=== PATIENT | female | born 1965 | race African-American/Black ===

== ENCOUNTER 2016-07-10 00:29 | Inpatient (IN) | payer MEDICAID ==
[2016-07-10] VITALS (9 sets, daily range): BP systolic 97–180; BP diastolic 51–122
[~2016-07-10] VITALS: Ht 170.2 cm; Wt 104.8 kg
--- NOTE | 2016-07-10 01:08 | Emergency Room Report ---
History of Present Illness General Chief Complaint: Dyspnea/Respdistress Source: Patient, EMS Present Illness HPI Patient presents with complaints of chest pain or shortness of breath She reports that she was recently in the hospital did not feel that she was fully treated Now presents with increased short of breath dyspnea Positional and exertional Patient has a history of CHF denies any vomiting or diarrhea denies any fevers or chills she is in mild cough Patient has been taking her diuretic however has not been helping Allergies: Coded Allergies: No Known Allergies (Unverified , 07/10/16) Patient History Past Medical History: see triage record Pertinent Family History: none Reviewed Nursing Documentation: PMH: Agreed, PSxH: Agreed Nursing Documentation-PMH Hx Cardiac Problems: Yes - CHF Hx Hypertension: Yes Hx Cerebrovascular Accident: Yes Review of Systems All Other Systems: negative except mentioned in HPI Physical Exam Vital Signs Date Time Temp Pulse Resp B/P Pulse Ox O2 Delivery O2 Flow Rate FiO2 07/10/16 00:42 97.9 113 34 207/122 88 Room Air Sp02 EP Interpretation: reviewed, abnormal - 88% interpreted as low, on 3 L the patient is 94% which is a normal oxygenation General Appearance: moderate distress - Appears tachypneic and short of breath Head: normocephalic, atraumatic Eyes: bilateral eye EOMI, bilateral eye PERRL ENT: hearing grossly normal, normal pharynx, TMs + canals normal, uvula midline Neck: full range of motion, supple, no meningismus, no bony tend Respiratory: no respiratory distress, no retraction, no accessory muscle use, crackles - Diffusely in both lower lobes Cardiovascular #1: normal peripheral pulses, regular rate, rhythm, no gallop, no JVD, no murmur Gastrointestinal: normal bowel sounds, non tender, soft, no mass, no organomegaly, non-distended, no guarding, no hernia, no pulsatile mass, no rebound Genitourinary: no CVA tenderness Musculoskeletal: normal inspection Neurologic: oriented x3, responsive, 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 as tested, motor strength/ tone normal, sensory intact Psychiatric: mood/affect normal Skin: other - 2/4 pitting edema Lymphatic: normal inspection, no adenopathy Medical Decision Making Diagnostic Impression: Primary Impression: CHF (congestive heart failure) ER Course Patient is a fairly complex patient with multiple differential to consideration including but not limited to cardiac cardiopulmonary and vascular emergencies Patient's x-rays concerning for pulmonary congestion BNP is also elevated Patient was initially written for BiPAP, however the patient is refusing and states that she cannot tolerate this Patient provided with further Lasix and require admission for further inpatient care Labs Test 07/10/16 01:25 White Blood Count 6.1 K/UL (4.8-10.8) Red Blood Count 4.47 M/UL (4.20-5.40) Hemoglobin 11.8 G/DL (12.0-16.0) Hematocrit 39.9 % (37.0-47.0) Mean Corpuscular Volume 89 FL (80-99) Mean Corpuscular Hemoglobin 26.4 PG (27.0-31.0) Mean Corpuscular Hemoglobin Concent 29.6 G/DL (32.0-36.0) Red Cell Distribution Width 17.9 % (11.6-14.8) Platelet Count 177 K/UL (150-450) Mean Platelet Volume 9.9 FL (6.5-10.1) Neutrophils (%) (Auto) 52.5 % (45.0-75.0) Lymphocytes (%) (Auto) 36.0 % (20.0-45.0) Monocytes (%) (Auto) 8.2 % (1.0-10.0) Eosinophils (%) (Auto) 1.8 % (0.0-3.0) Basophils (%) (Auto) 1.5 % (0.0-2.0) Prothrombin Time 12.0 SEC (9.30-11.50) Prothromb Time International Ratio 1.2 (0.9-1.1) Activated Partial Thromboplast Time 27 SEC (23-33) Sodium Level 142 mEQ/L (135-145) Potassium Level 4.5 mEQ/L (3.4-4.9) Chloride Level 100 mEQ/L (98-107) Carbon Dioxide Level 29 mEQ/L (20-30) Anion Gap 13 (5-15) Blood Urea Nitrogen 14 mg/dL (7-23) Creatinine 0.7 mg/dL (0.5-0.9) Estimat Glomerular Filtration Rate > 60 mL/min (>60) Glucose Level 97 mg/dL (74-106) Calcium Level 8.9 mg/dL (8.6-10.2) Total Bilirubin 0.5 mg/dL (0.0-1.2) Aspartate Amino Transf (AST/SGOT) 29 U/L (5-40) Alanine Aminotransferase (ALT/SGPT) 15 U/L (3-33) Alkaline Phosphatase 58 U/L (35-104) Total Creatine Kinase 59 U/L (26-140) Creatine Kinase MB 3.0 ng/mL (< 3.8) Creatine Kinase MB Relative Index 5.0 Troponin I < 0.30 ng/mL (<=0.30) Pro-B-Type Natriuretic Peptide 3765 pg/mL (0-125) Total Protein 6.8 g/dL (6.6-8.7) Albumin 3.4 g/dL (3.5-5.2) Globulin 3.4 g/dL Albumin/Globulin Ratio 1.0 (1.0-2.7) Lipase 45 U/L (< 60) EKG Diagnostic Results Rate: normal Rhythm: NSR ST Segments: other - Nonspecific ST and T-wave changes Rhythm Strip Diag. Results EP Interpretation: yes Rate: 77 Rhythm: NSR, no PVC's, no ectopy Chest X-Ray Diagnostic Results EP Interpretation: Yes Findings: no consolidation, no pneumothorax, other - Cardiomegaly, pulmonary congestion Number of Views: 1 Last Vital Signs Date Time Temp Pulse Resp B/P Pulse Ox O2 Delivery O2 Flow Rate FiO2 07/10/16 00:42 97.9 113 34 207/122 88 Room Air Status: improved Disposition: ADMITTED INPATIENT Condition: Serious TAN BROOKS D.O. Jul 10, 2016 01:08
[2016-07-10] MEDS ORDERED: DIGOXIN125 MCG ORAL (01:14)
[2016-07-10] MEDS ORDERED: ATORVASTATIN CA10 MG ORAL (01:14)
[2016-07-10] MEDS ORDERED: LASIX40 MG ORAL (01:14)
[2016-07-10] MEDS ORDERED: LISINOPRIL10 MG ORAL (01:14)
[2016-07-10] MEDS ORDERED: COREG12.5 MG ORAL (01:14)
[2016-07-10] MEDS ORDERED: SPIRONOLACTONE25 MG ORAL (01:14)
[2016-07-10 01:39] LABS: BASOPHILS % (AUTO) 1.5 % (0.0-2.0); EOSINOPHILS % (AUTO) 1.8 % (0.0-3.0); MEAN CORPUSCULAR HEMOGLOBIN 26.4 PG (27.0-31.0); MEAN CORPUSCULAR HGB CONC 29.6 G/DL (32.0-36.0); MEAN CORPUSCULAR VOLUME 89 FL (80-99); MEAN PLATELET VOLUME 9.9 FL (6.5-10.1); MONOCYTES % (AUTO) 8.2 % (1.0-10.0); NEUTROPHILS % (AUTO) 52.5 % (45.0-75.0); PLATELET COUNT 177 K/UL (150-450); RED BLOOD COUNT 4.47 M/UL (4.20-5.40); RED CELL DISTRIBUTION WIDTH 17.9 % (11.6-14.8); WHITE BLOOD COUNT 6.1 K/UL (4.8-10.8)
[2016-07-10 01:46] LABS: INR 1.2 (0.9-1.1)
[2016-07-10 01:51] LABS: TROPONIN I < 0.30 ng/mL (<=0.30)
[2016-07-10 01:55] LABS: ALANINE AMINOTRANSFERASE 15 U/L (3-33); ANION GAP 13 (5-15); ASPARTATE AMINO TRANSFERASE 29 U/L (5-40); CALCIUM 8.9 mg/dL (8.6-10.2); CARBON DIOXIDE 29 mEQ/L (20-30); CHLORIDE 100 mEQ/L (98-107); CREATININE 0.7 mg/dL (0.5-0.9); GLOMERULAR FILTRATION RATE > 60 mL/min (>60); HEMOLYSIS 108; LIPASE 45 U/L (< 60); POTASSIUM 4.5 mEQ/L (3.4-4.9); SODIUM 142 mEQ/L (135-145); TOTAL PROTEIN 6.8 g/dL (6.6-8.7)
[2016-07-10] MEDS ORDERED: Morphine Sulfate 4mg/ml Inj IVP ONE (02:00)
[2016-07-10] MEDS ORDERED: Nitroglycerin 2% oint pkt TOPIC ONE (06:00)
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
[2016-07-10 10:40] LABS: TROPONIN I < 0.30 ng/mL (<=0.30)
--- NOTE | 2016-07-10 10:53 | Diagnostic Imaging Report ---
Indication: Chest Pain Comparison: None A single view chest radiograph was obtained. Findings: There is enlargement of the cardiac silhouette with pulmonary vascular redistribution and prominence, hazy vessel margins and the suggestion of interstitial edema consistent with CHF. Bones are unremarkable. Impression: Congestive heart there
[2016-07-10] MEDS: Aspirin Baby 81mg ORAL SCH (10:59)
[2016-07-10] MEDS: Norco 5mg/325mg tab ORAL PRN ×2 (10:59→18:43)
[2016-07-10] MEDS: Carvedilol 12.5mg tab ORAL SCH ×2 (11:00→22:22)
[2016-07-10] MEDS: Lisinopril 10mg tab ORAL SCH (11:00)
[2016-07-10] MEDS: Heparin 5000 units/ml inj SUBQ SCH ×2 (11:04→22:24)
[2016-07-10] MEDS: Spironolactone 25mg tab ORAL SCH (12:48)
[2016-07-10 15:42] LABS: TROPONIN I < 0.30 ng/mL (<=0.30)
--- NOTE | 2016-07-10 20:07 | Consultation ---
Consult Note Consult Note Cardiology/ EP Full note dictated #[id number] DARSHAN WOODSON Jul 10, 2016 20:07
--- NOTE | 2016-07-10 23:01 | Consultation ---
DATE OF CONSULTATION: 07/10/2016 REASON FOR CONSULT: Chest pain and dyspnea. HISTORY OF PRESENT ILLNESS: The patient is a 51-year-old woman with a history of obesity, hypertension, and congestive heart failure who was admitted with increasing shortness of breath over the day prior to admission. She reports that she was taking Lasix, lisinopril, and few other medications at home, but ran out of medications three days ago. She presented to the emergency room with complaints of shortness of breath, chest pain, and cough without sputum production. In the emergency room, blood pressure was 207/122, oxygen saturation was 88% on room air and 94% on 3 L. Chest x-ray showed pulmonary congestion. She was treated with intravenous Lasix and admitted for further treatment. Cardiology evaluation was requested. MEDICATIONS: Lipitor 10 mg nightly, nicotine patch one patch q.24 h., Aldactone 25 mg daily, Lasix 40 mg IV q.12 h., Coreg 12.5 mg q.12 h., Zestril 10 mg daily, aspirin 81 mg daily, subcutaneous heparin 5000 units every 12 hours, Tylenol p.r.n., and [place] p.r.n., p.r.n. ALLERGIES: No known drug allergies. PAST MEDICAL HISTORY: As noted above. Also, possible history of coronary artery disease and remote history of myocardial infarction. Per patient, history of ventral hernia repair in 2002. SOCIAL HISTORY: The patient smokes three to four cigarettes per day. She drinks alcohol occasionally and does not use any drugs. FAMILY HISTORY: Negative for premature coronary artery disease. The patient's father has diabetes. PHYSICAL EXAMINATION: VITAL SIGNS: Blood pressure is 122/81, pulse 74 and regular, respirations 21, afebrile, and oxygen saturation 99% on room air. GENERAL: Alert and morbidly obese female, in no acute distress. HEENT: Normocephalic and atraumatic. Pupils are equal, round, and reactive to light. Sclerae anicteric. NECK: Supple. There is no thyromegaly. No jugular venous distention. Carotid pulses 2+ without bruits. LUNGS: Clear to auscultation bilaterally. HEART: Regular rate and rhythm with distant S1 and S2. No murmurs, rubs, S3, or S4. ABDOMEN: Obese, soft, and nontender. There is a healed midline surgical scar. No palpable mass. EXTREMITIES: 1+ pedal and ankle edema bilaterally. NEUROLOGIC: No focal motor deficits. LABORATORY DATA: Hemoglobin 11.8, hematocrit 39.9, white blood count 6100, and platelets 177,000. Troponin less than 0.3. Potassium 4.2. BUN 14 and creatinine 0.7. Natriuretic peptide 3765. EKG shows sinus tachycardia with rate of 108 beats per minute, axis +10 degrees, left ventricular hypertrophy with QRS widening and inverted T-waves in leads 1 and aVL consistent with repolarization. Chest x-ray shows cardiomegaly and pulmonary vascular congestion. ASSESSMENT AND RECOMMENDATIONS: The patient is a 51-year-old woman with obesity, hypertension, and congestive heart failure who was admitted with an exacerbation of congestive heart failure. This occurred in the setting of her not taking her prescribed medications for a few days. It is unclear if her heart failure is due to the systolic versus diastolic dysfunction and if she has ischemic or nonischemic cardiomyopathy. She does not appear with any current signs of myocardial ischemia. Troponin is negative. An EKG does not show any acute ischemic changes. I would favor continued Lasix for pulmonary congestion as well as carvedilol and lisinopril for blood pressure control, Aldactone, intravenous Lasix, diuresis for pulmonary vascular congestion. We would continue lisinopril for afterload reduction and Coreg for his cardiomyopathy and possible coronary artery disease. We would consider evaluation for ischemia if this has not previously been performed. We will also obtain an echo to determine if her heart failure is due to left ventricular systolic or diastolic dysfunction. Continue to monitor electrolytes, renal function, and fluid status closely. Further recommendations will be made based on her clinical course and results of the above testing. Thank you for allowing me to participate in her care. Milana Estevez M.D. DR: MAGGI JOB#: [id number] CC:
[2016-07-11 00:20] VITALS: BP 130/90
[2016-07-11 04:13] VITALS: BP 134/90
[2016-07-11] MEDS: Norco 5mg/325mg tab ORAL PRN ×2 (04:22→16:43)
[2016-07-11 08:32] VITALS: BP 134/71
[2016-07-11] MEDS: Carvedilol 12.5mg tab ORAL SCH (08:41)
[2016-07-11] MEDS: Aspirin Baby 81mg ORAL SCH (08:41)
[2016-07-11] MEDS: Spironolactone 25mg tab ORAL SCH (08:43)
[2016-07-11] MEDS: Lisinopril 10mg tab ORAL SCH (08:43)
[2016-07-11] MEDS: Heparin 5000 units/ml inj SUBQ SCH (08:45)
[2016-07-11 08:52] LABS: MEAN CORPUSCULAR HGB CONC 29.2 G/DL (32.0-36.0); MEAN CORPUSCULAR VOLUME 89 FL (80-99); MEAN PLATELET VOLUME 8.8 FL (6.5-10.1); PLATELET COUNT 157 K/UL (150-450); RED BLOOD COUNT 4.43 M/UL (4.20-5.40); RED CELL DISTRIBUTION WIDTH 17.4 % (11.6-14.8); WHITE BLOOD COUNT 4.2 K/UL (4.8-10.8)
[2016-07-11 09:13] LABS: ANION GAP 8 (5-15); CALCIUM 8.7 mg/dL (8.6-10.2); CARBON DIOXIDE 35 mEQ/L (20-30); CHLORIDE 101 mEQ/L (98-107); CREATININE 0.7 mg/dL (0.5-0.9); GLOMERULAR FILTRATION RATE > 60 mL/min (>60); HEMOLYSIS 4; POTASSIUM 4.3 mEQ/L (3.4-4.9); SODIUM 144 mEQ/L (135-145)
[2016-07-11 10:51] LABS: ANISOCYTOSIS 1+; BAND NEUTROPHILS % (MANUAL) 0 % (0-8); BASOPHILS % (MANUAL) 0 % (0-2); EOSINOPHILS % (MANUAL) 3 % (0-3); HYPOCHROMASIA 1+; LYMPHOCYTES % (MANUAL) 43 % (20-45); NEUTROPHILS % (MANUAL) 42 % (45-75); PLATELET ESTIMATE ADEQUATE; PLATELET MORPHOLOGY NORMAL; TOTAL CELLS COUNTED 100
[2016-07-11 11:48] VITALS: BP 131/76
--- NOTE | 2016-07-11 13:04 | Cardiology Report ---
APPROVED REPORT EXAM: Two-dimensional and M-mode echocardiogram with Doppler and color Doppler. INDICATION Congestive Heart Failure M-Mode DIMENSIONS IVSd1.3 (0.7-1.1cm)Left Atrium (MM)6.3 (1.6-4.0cm) LVDd7.8 (3.5-5.6cm)Aortic Root3.5 (2.0-3.7cm) PWd1.3 (0.7-1.1cm)Aortic Cusp Exc.2.1 (1.5-2.0cm) LVDs6.9 (2.5-4.0cm) PWs1.6 cm Limited Echo study. Patient requested to terminate this echo study early due to her fatigue. Severe left ventricular enlargement. Global left ventricular severe hypokinesis. Left ventricular ejection fraction estimated to be 10-15 %. Increased E point-interventricular septal separation c/w left ventricular dysfunction. Borderline left ventricular hypertrophy. No evidence of pericardial effusion. Moderate left atrial enlargement. Right ventricle appears enlarged. Right atrium not visualized. Mild focal aortic valve sclerosis with adequate cusp excursion. Mildly thickened mitral valve leaflets with normal excursion. Poor mitral valve Mitral annulus and aortic root calcification. Pulmonic valve not visualized. Normal tricuspid valve structure. No subcsotal views obtained. A color flow and spectral Doppler study was performed and revealed: Possible severe mitral regurgitation. Follow-up Echo study is strongly recommended.
--- NOTE | 2016-07-11 14:03 | Cardiology Report ---
APPROVED REPORT EKG Measurement Heart [id number] Sinus tachycardia Possible Left atrial enlargement Left ventricular hypertrophy with repolarization abnormality Abnormal ECG
--- NOTE | 2016-07-11 15:39 | General Progress Note ---
Subjective Date patient seen: Jul 11, 2016 Time patient seen: 15:39 Allergies: Coded Allergies: No Known Allergies (Unverified , 07/10/16) Objective Last 24 Hour Vital Signs Date Time Temp Pulse Resp B/P Pulse Ox O2 Delivery O2 Flow Rate FiO2 07/11/16 12:00 79 07/11/16 11:48 97.0 88 20 131/76 96 Nasal Cannula 2.0 07/11/16 08:43 134/71 07/11/16 08:41 80 134/71 07/11/16 08:32 97.2 80 18 134/71 94 Room Air 07/11/16 08:00 66 07/11/16 04:13 98.4 91 19 134/90 98 Room Air 07/11/16 04:00 99 07/11/16 00:20 98.8 87 18 130/90 94 Room Air 07/11/16 00:00 77 07/10/16 22:22 89 133/76 07/10/16 20:00 96 07/10/16 20:00 97.9 89 22 133/76 94 Room Air 07/10/16 19:42 97.9 07/10/16 16:00 97.3 74 21 122/81 99 Room Air 07/10/16 16:00 74 Intake and Output 07/10/16 07/11/16 19:00 07:00 Intake Total 240 ml 260 ml Balance 240 ml 260 ml Intake Oral 240 ml 260 ml # Voids 4 3 Laboratory Tests 07/11/16 06:53: White Blood Count 4.2L, Red Blood Count 4.43, Hemoglobin 11.5L, Hematocrit 39.4 , Mean Corpuscular Volume 89, Mean Corpuscular Hemoglobin 26.0L, Mean Corpuscular Hemoglobin Concent 29.2L, Red Cell Distribution Width 17.4H, Platelet Count 157, Mean Platelet Volume 8.8, Neutrophils (%) (Auto) , Lymphocytes (%) (Auto) , Monocytes (%) (Auto) , Eosinophils (%) (Auto) , Basophils (%) (Auto) , Differential Total Cells Counted 100, Neutrophils % ( Manual) 42L, Lymphocytes % (Manual) 43, Monocytes % (Manual) 12H, Eosinophils % (Manual) 3, Basophils % (Manual) 0, Band Neutrophils 0, Platelet Estimate Adequate, Platelet Morphology Normal, Hypochromasia 1+, Anisocytosis 1+, Sodium Level 144, Potassium Level 4.3, Chloride Level 101, Carbon Dioxide Level 35H, Anion Gap 8, Blood Urea Nitrogen 17, Creatinine 0.7, Estimat Glomerular Filtration Rate > 60, Glucose Level 79, Calcium Level 8.7, Magnesium Level 2.0 Height (Feet): 5 Height (Inches): 7.00 Weight (Pounds): 231 Rakan Hernández M.D. Jul 11, 2016 15:39
[2016-07-11 16:00] VITALS: BP 148/68
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
[2016-07-22] MEDS ORDERED: LISINOPRIL10 MG ORAL (13:55)
[2016-07-22] MEDS ORDERED: AMLODIPINE BESYL5 MG ORAL (13:55)
== END 2016-07-11 17:30 | disposition left against medical advice (07) | DRG 194 ==
LOC: EDBD 00:29 → EMR 00:58 → 2E 01:52 → EDBEDREQ 05:26
DX: I50.9 Heart failure, unspecified (principal); I10 Essential (primary) hypertension; F17.200 Nicotine dependence, unspecified, uncomplicated; E66.9 Obesity, unspecified; I25.10 Atherosclerotic heart disease of native coronary artery without angina pectoris; I25.2 Old myocardial infarction; R09.02 Hypoxemia
CPT/HCPCS: 36415; 71010; 80048; 80053; 82550; 82553; 83690; 83735; 83880; 84484; 85007; 85025; 85610; 85730; 87040; 93005; 93306

== ENCOUNTER 2016-07-16 23:00 | Inpatient (IN) | payer MEDICAID ==
[~2016-07-16] VITALS: Ht 172.7 cm; Wt 105.2 kg
[~2016-07-16 23:00] MED LIST: ATORVASTATIN CA10 MG ORAL; COREG12.5 MG ORAL; DIGOXIN125 MCG ORAL; LASIX40 MG ORAL; LISINOPRIL10 MG ORAL; SPIRONOLACTONE25 MG ORAL
[2016-07-16] MEDS ORDERED: COREG3.125 MG ORAL (23:13)
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
[2016-07-16] MEDS ORDERED: Enalaprilat 2.5mg/2ml Inj IV ONE (23:30)
[2016-07-16] MEDS ORDERED: Aspirin Baby 81mg ORAL ONE (23:30)
[2016-07-16 23:38] LABS: BASOPHILS % (AUTO) 1.8 % (0.0-2.0); EOSINOPHILS % (AUTO) 2.5 % (0.0-3.0); LYMPHOCYTES % (AUTO) 35.2 % (20.0-45.0); MEAN CORPUSCULAR HGB CONC 28.3 G/DL (32.0-36.0); MEAN CORPUSCULAR VOLUME 92 FL (80-99); MEAN PLATELET VOLUME 8.7 FL (6.5-10.1); NEUTROPHILS % (AUTO) 50.5 % (45.0-75.0); PLATELET COUNT 166 K/UL (150-450); RED CELL DISTRIBUTION WIDTH 17.2 % (11.6-14.8); WHITE BLOOD COUNT 5.9 K/UL (4.8-10.8)
[2016-07-16 23:45] VITALS: BP 165/109
[2016-07-16 23:45] LABS: ALANINE AMINOTRANSFERASE 13 U/L (3-33); ASPARTATE AMINO TRANSFERASE 16 U/L (5-40); CALCIUM 8.7 mg/dL (8.6-10.2); CARBON DIOXIDE 29 mEQ/L (20-30); CHLORIDE 102 mEQ/L (98-107); CREATININE 0.9 mg/dL (0.5-0.9); GLOMERULAR FILTRATION RATE > 60 mL/min (>60); HEMOLYSIS 2; POTASSIUM 4.2 mEQ/L (3.4-4.9); SODIUM 143 mEQ/L (135-145); TOTAL PROTEIN 6.7 g/dL (6.6-8.7)
[2016-07-16 23:46] LABS: ANION GAP 12 (5-15); TROPONIN I < 0.30 ng/mL (<=0.30)
[2016-07-16 23:56] LABS: CKMB 2.2 ng/mL (< 3.8)
[2016-07-17] VITALS (7 sets, daily range): BP systolic 146–161; BP diastolic 98–116
[2016-07-17] MEDS ORDERED: Norco 5mg/325mg tab ORAL ONE (00:30)
[2016-07-17 00:41] LABS: APPEARANCE,URINE CLEAR; KETONES,URINE NEGATIVE (NEGATIVE); LEUKOCYTE ESTERASE ,URINE 1+ (NEGATIVE); NITRITE,URINE NEGATIVE (NEGATIVE); PH,URINE 6 (4.5-8.0); PROTEIN,URINE 1+ (NEGATIVE); UROBILINOGEN,URINE NORMAL MG/DL (0.0-1.0)
[2016-07-17 01:10] LABS: BACTERIA,URINE FEW /HPF; SQUAMOUS EPITHELIAL CELL,UR FEW /LPF (NONE/OCC)
[2016-07-17 01:11] LABS: MUCUS,URINE FEW /LPF (NONE/OCC)
[2016-07-17] MEDS ORDERED: Lisinopril 10mg tab ORAL ONE (06:00)
[2016-07-17] MEDS ORDERED: Nitroglycerin 2% oint pkt TOPIC ONE (09:15)
[2016-07-17] MEDS ORDERED: Heparin 5000 units/ml inj ONE (09:17)
[2016-07-17] MEDS ORDERED: Morphine Sulfate 2mg/ml Inj ONE (09:17)
[2016-07-17] MEDS ORDERED: Miralax 17gm pkt ORAL PRN (11:00)
[2016-07-17] MEDS ORDERED: DuoNeb 0.5-3(2.5)mg/3ml neb HHN PRN (11:00)
[2016-07-17] MEDS ORDERED: Lisinopril 10mg tab ORAL SCH (12:00)
[2016-07-17] MEDS: Digoxin 0.125mg tab ORAL SCH (12:09)
[2016-07-17] MEDS: Carvedilol 6.25mg Tab ORAL SCH ×2 (12:09→21:12)
--- NOTE | 2016-07-17 13:15 | Diagnostic Imaging Report ---
Indication: SOB Technique: One view of the chest Comparison: 07/10/2016 Findings: The heart is enlarged. There is bilateral interstitial and alveolar edema, which appears less severe than on the prior study. There may be a small left pleural effusion Impression: Evidence of congestive heart failure, improved somewhat since 07/10/2016 Persistent cardiomegaly Possible small left pleural effusion
[2016-07-17] MEDS: Norco 5mg/325mg tab ORAL PRN ×2 (13:21→19:28)
--- NOTE | 2016-07-17 13:41 | History and Physical ---
History of Present Illness General Date patient seen: Jul 17, 2016 Reason for Hospitalization: dyspnea Present Illness HPI 51-year-old female with a history of cardiomyopathy and CHF. She was admitted here last week but signed out AMA 3-4 days ago. Hasn't take any medication since. She presents with chief complaint of feeling short of breath and generalized pain. He friends dog was thought to have "ticks", she thinks she might have ticks too. Allergies: Coded Allergies: No Known Allergies (Unverified , 07/10/16) Medication History Scheduled Atorvastatin Calcium* (Lipitor*), 10 MG ORAL BEDTIME, (Reported) Carvedilol (Coreg), 12.5 MG ORAL EVERY 12 HOURS, (Reported) Carvedilol (Coreg), Unknown Dose ORAL EVERY 12 HOURS, (Reported) Digoxin* (Digoxin*), 125 MCG ORAL DAILY, (Reported) Furosemide* (Lasix*), 40 MG ORAL DAILY, (Reported) Lisinopril* (Lisinopril*), 10 MG ORAL DAILY, (Reported) Spironolactone* (Aldactone*), 25 MG ORAL DAILY, (Reported) Patient History Healthcare decision maker Resuscitation status Advanced Directive on File Past Medical/Surgical History Past Medical/Surgical History: (1) Noncompliance (2) Cardiomyopathy (3) HTN (hypertension) Family History Family History: CHF (congestive heart failure) Review of Systems All Other Systems: negative except mentioned in HPI Physical Exam General Appearance: WD/WN Lines, tubes and drains: peripheral HEENT: atraumatic Neck: non-tender, normal alignment Respiratory/Chest: rhonchi - bilaterally Breasts: no masses Cardiovascular/Chest: normal peripheral pulses Abdomen: normal bowel sounds, non tender Last 24 Hour Vital Signs Date Time Temp Pulse Resp B/P Pulse Ox O2 Delivery O2 Flow Rate FiO2 07/17/16 12:20 97.3 101 22 147/114 96 Nasal Cannula 2.0 07/17/16 12:09 147/114 07/17/16 12:09 101 07/17/16 12:09 101 147/114 07/17/16 10:02 98.0 89 24 159/113 97 Room Air 07/17/16 09:31 159/113 07/17/16 08:30 89 24 159/113 97 Room Air 07/17/16 06:17 161/116 07/17/16 06:12 98.0 94 18 161/116 96 Room Air 07/17/16 03:44 98.0 90 18 148/98 95 Room Air 07/17/16 00:54 98.0 07/17/16 00:53 98.0 92 18 158/108 95 Room Air 07/16/16 23:47 95 18 Room Air 07/16/16 23:45 95 18 165/109 96 Room Air 07/16/16 23:35 168/110 07/16/16 23:02 94 18 168/110 96 Room Air Intake and Output 07/16/16 07/17/16 19:00 07:00 Output Total 1000 ml Balance -1000 ml Output Urine Total 1000 ml Laboratory Tests Test 07/16/16 23:23 07/17/16 00:30 White Blood Count 5.9 K/UL (4.8-10.8) Red Blood Count 4.10 M/UL (4.20-5.40) L Hemoglobin 10.7 G/DL (12.0-16.0) L Hematocrit 37.7 % (37.0-47.0) Mean Corpuscular Volume 92 FL (80-99) Mean Corpuscular Hemoglobin 26.0 PG (27.0-31.0) L Mean Corpuscular Hemoglobin Concent 28.3 G/DL (32.0-36.0) L Red Cell Distribution Width 17.2 % (11.6-14.8) H Platelet Count 166 K/UL (150-450) Mean Platelet Volume 8.7 FL (6.5-10.1) Neutrophils (%) (Auto) 50.5 % (45.0-75.0) Lymphocytes (%) (Auto) 35.2 % (20.0-45.0) Monocytes (%) (Auto) 10.0 % (1.0-10.0) Eosinophils (%) (Auto) 2.5 % (0.0-3.0) Basophils (%) (Auto) 1.8 % (0.0-2.0) Sodium Level 143 mEQ/L (135-145) Potassium Level 4.2 mEQ/L (3.4-4.9) Chloride Level 102 mEQ/L (98-107) Carbon Dioxide Level 29 mEQ/L (20-30) Anion Gap 12 (5-15) Blood Urea Nitrogen 17 mg/dL (7-23) Creatinine 0.9 mg/dL (0.5-0.9) Estimat Glomerular Filtration Rate > 60 mL/min (>60) Glucose Level 96 mg/dL (74-106) Calcium Level 8.7 mg/dL (8.6-10.2) Total Bilirubin 0.7 mg/dL (0.0-1.2) Aspartate Amino Transf (AST/SGOT) 16 U/L (5-40) Alanine Aminotransferase (ALT/SGPT) 13 U/L (3-33) Alkaline Phosphatase 68 U/L (35-104) Total Creatine Kinase 48 U/L (26-140) Creatine Kinase MB 2.2 ng/mL (< 3.8) Creatine Kinase MB Relative Index 4.5 Troponin I < 0.30 ng/mL (<=0.30) Pro-B-Type Natriuretic Peptide 3050 pg/mL (0-125) H Total Protein 6.7 g/dL (6.6-8.7) Albumin 3.4 g/dL (3.5-5.2) L Globulin 3.3 g/dL Albumin/Globulin Ratio 1.0 (1.0-2.7) Urine Color Pale yellow Urine Appearance Clear Urine pH 6 (4.5-8.0) Urine Specific [place] 1.015 (1.005-1.035) Urine Protein 1+ (NEGATIVE) H Urine Glucose (UA) Negative (NEGATIVE) Urine Ketones Negative (NEGATIVE) Urine Occult Blood 1+ (NEGATIVE) H Urine Nitrite Negative (NEGATIVE) Urine Bilirubin Negative (NEGATIVE) Urine Urobilinogen Normal MG/DL (0.0-1.0) Urine Leukocyte Esterase 1+ (NEGATIVE) H Urine RBC 2-4 /HPF (0 - 2) H Urine WBC 2-4 /HPF (0 - 2) Urine Squamous Epithelial Cells Few /LPF (NONE/OCC) Urine Bacteria Few /HPF (NONE) Urine Mucus Few /LPF (NONE/OCC) H Urine Opiates Screen Negative (NEGATIVE) Urine Barbiturates Screen Negative (NEGATIVE) Phencyclidine (PCP) Screen Negative (NEGATIVE) Urine Amphetamines Screen Negative (NEGATIVE) Urine Benzodiazepines Screen Negative (NEGATIVE) Urine Cocaine Screen Positive (NEGATIVE) H Urine Marijuana (THC) Screen Negative (NEGATIVE) Height (Feet): 5 Height (Inches): 8.00 Weight (Pounds): 210 Medications Current Medications Medications (Trade) Dose Ordered Sig/Fitz Route PRN Reason Start Time Stop Time Status Last Admin Dose Admin Acetaminophen (Tylenol) 650 mg Q4H PRN ORAL Fever 07/17/16 11:00 08/16/16 10:59 Acetaminophen/ Hydrocodone Bitart ([place] 5/325) 1 tab Q6H PRN ORAL For Pain 07/17/16 13:00 07/24/16 12:59 07/17/16 13:21 Albuterol/ Ipratropium (DuoNeb 0.5-3(2.5)mg/3ml) 3 ml Q4H PRN HHN Shortness of Breath 07/17/16 11:00 07/22/16 10:59 Atorvastatin Calcium (Lipitor) 10 mg BEDTIME ORAL 07/17/16 21:00 08/16/16 20:59 Carvedilol (Coreg) 6.25 mg EVERY 12 HOURS ORAL 07/17/16 12:00 08/16/16 11:59 07/17/16 12:09 Dextrose (Dextrose 50%) STAT PRN IV Hypoglycemia 07/17/16 11:00 08/16/16 10:59 Digoxin (Lanoxin) 0.125 mg DAILY ORAL 07/17/16 12:00 08/16/16 11:59 07/17/16 12:09 Furosemide (Lasix) 40 mg EVERY 8 HOURS IV 07/17/16 14:00 08/16/16 13:59 07/17/16 13:22 Heparin Sodium (Porcine) (Heparin 5000 units/ml) 5,000 units EVERY 12 HOURS SUBQ 07/17/16 21:00 08/16/16 20:59 Lisinopril (Zestril) 10 mg DAILY ORAL 07/17/16 12:00 08/16/16 11:59 07/17/16 12:09 Ondansetron HCl (Zofran) 4 mg Q6H PRN IVP Nausea & Vomiting 07/17/16 11:00 08/16/16 10:59 Polyethylene Glycol (Miralax) 17 gm DAILYPRN PRN ORAL Constipation 07/17/16 11:00 08/16/16 10:59 Spironolactone (Aldactone) 25 mg DAILY ORAL 07/18/16 09:00 08/17/16 08:59 Temazepam (Restoril) 15 mg HSPRN PRN ORAL Insomnia 07/17/16 11:00 07/24/16 10:59 Assessment/Plan Problem List: (1) Acute exacerbation of CHF (congestive heart failure) ICD Codes: I50.9 - Heart failure, unspecified SNOMED: 64672135, [id number] Qualifiers: Qualified Codes: I50.9 - Heart failure, unspecified (2) Noncompliance ICD Codes: Z91.19 - Patient's noncompliance with other medical treatment and regimen SNOMED: 6928953 (3) Obesity (BMI 30.0-34.9) ICD Codes: E66.9 - Obesity, unspecified SNOMED: 384709084, 340514816 (4) Anemia, chronic disease ICD Codes: D63.8 - Anemia in other chronic diseases classified elsewhere SNOMED: 653887960, [id number] (5) Obesity ICD Codes: E66.9 - Obesity, unspecified SNOMED: 996597525 Assessment/Plan iv laxis optimize cardiac meds elimite for possible Scabies and Lice. MARIA A MEDINA Jul 17, 2016 13:41
[2016-07-17] MEDS ORDERED: Promethazine/Codeine 5ml UD ORAL PRN (13:45)
[2016-07-17 14:18] LABS: TROPONIN I < 0.30 ng/mL (<=0.30)
--- NOTE | 2016-07-17 20:21 | Cardiology Progress Note ---
Assessment/Plan Assessment/Plan acute sytolci heart failyure dcm mr htn substanc abuse etoh dn coaicne non complaince [id number] Objective Last 24 Hour Vital Signs Date Time Temp Pulse Resp B/P Pulse Ox O2 Delivery O2 Flow Rate FiO2 07/17/16 19:46 97 Nasal Cannula 2.0 28 07/17/16 19:46 Nasal Cannula 2.0 28 07/17/16 19:45 78 18 Nasal Cannula 2.0 28 07/17/16 16:00 96.4 85 18 146/100 99 Room Air 07/17/16 14:37 100 07/17/16 12:20 97.3 101 22 147/114 96 Nasal Cannula 2.0 07/17/16 12:09 147/114 07/17/16 12:09 101 07/17/16 12:09 101 147/114 07/17/16 10:50 93 07/17/16 10:02 98.0 89 24 159/113 97 Room Air 07/17/16 09:31 159/113 07/17/16 08:30 89 24 159/113 97 Room Air 07/17/16 06:17 161/116 07/17/16 06:12 98.0 94 18 161/116 96 Room Air 07/17/16 03:44 98.0 90 18 148/98 95 Room Air 07/17/16 00:54 98.0 07/17/16 00:53 98.0 92 18 158/108 95 Room Air 07/16/16 23:47 95 18 Room Air 07/16/16 23:45 95 18 165/109 96 Room Air 07/16/16 23:35 168/110 07/16/16 23:02 94 18 168/110 96 Room Air Intake and Output 07/16/16 07/17/16 19:00 07:00 Output Total 1000 ml Balance -1000 ml Output Urine Total 1000 ml Laboratory Tests Test 07/16/16 23:23 07/17/16 00:30 07/17/16 13:45 White Blood Count 5.9 K/UL (4.8-10.8) Red Blood Count 4.10 M/UL (4.20-5.40) L Hemoglobin 10.7 G/DL (12.0-16.0) L Hematocrit 37.7 % (37.0-47.0) Mean Corpuscular Volume 92 FL (80-99) Mean Corpuscular Hemoglobin 26.0 PG (27.0-31.0) L Mean Corpuscular Hemoglobin Concent 28.3 G/DL (32.0-36.0) L Red Cell Distribution Width 17.2 % (11.6-14.8) H Platelet Count 166 K/UL (150-450) Mean Platelet Volume 8.7 FL (6.5-10.1) Neutrophils (%) (Auto) 50.5 % (45.0-75.0) Lymphocytes (%) (Auto) 35.2 % (20.0-45.0) Monocytes (%) (Auto) 10.0 % (1.0-10.0) Eosinophils (%) (Auto) 2.5 % (0.0-3.0) Basophils (%) (Auto) 1.8 % (0.0-2.0) Sodium Level 143 mEQ/L (135-145) Potassium Level 4.2 mEQ/L (3.4-4.9) Chloride Level 102 mEQ/L (98-107) Carbon Dioxide Level 29 mEQ/L (20-30) Anion Gap 12 (5-15) Blood Urea Nitrogen 17 mg/dL (7-23) Creatinine 0.9 mg/dL (0.5-0.9) Estimat Glomerular Filtration Rate > 60 mL/min (>60) Glucose Level 96 mg/dL (74-106) Calcium Level 8.7 mg/dL (8.6-10.2) Total Bilirubin 0.7 mg/dL (0.0-1.2) Aspartate Amino Transf (AST/SGOT) 16 U/L (5-40) Alanine Aminotransferase (ALT/SGPT) 13 U/L (3-33) Alkaline Phosphatase 68 U/L (35-104) Total Creatine Kinase 48 U/L (26-140) Creatine Kinase MB 2.2 ng/mL (< 3.8) Creatine Kinase MB Relative Index 4.5 Troponin I < 0.30 ng/mL (<=0.30) < 0.30 ng/mL (<=0.30) Pro-B-Type Natriuretic Peptide 3050 pg/mL (0-125) H Total Protein 6.7 g/dL (6.6-8.7) Albumin 3.4 g/dL (3.5-5.2) L Globulin 3.3 g/dL Albumin/Globulin Ratio 1.0 (1.0-2.7) Urine Color Pale yellow Urine Appearance Clear Urine pH 6 (4.5-8.0) Urine Specific [place] 1.015 (1.005-1.035) Urine Protein 1+ (NEGATIVE) H Urine Glucose (UA) Negative (NEGATIVE) Urine Ketones Negative (NEGATIVE) Urine Occult Blood 1+ (NEGATIVE) H Urine Nitrite Negative (NEGATIVE) Urine Bilirubin Negative (NEGATIVE) Urine Urobilinogen Normal MG/DL (0.0-1.0) Urine Leukocyte Esterase 1+ (NEGATIVE) H Urine RBC 2-4 /HPF (0 - 2) H Urine WBC 2-4 /HPF (0 - 2) Urine Squamous Epithelial Cells Few /LPF (NONE/OCC) Urine Bacteria Few /HPF (NONE) Urine Mucus Few /LPF (NONE/OCC) H Urine Opiates Screen Negative (NEGATIVE) Urine Barbiturates Screen Negative (NEGATIVE) Phencyclidine (PCP) Screen Negative (NEGATIVE) Urine Amphetamines Screen Negative (NEGATIVE) Urine Benzodiazepines Screen Negative (NEGATIVE) Urine Cocaine Screen Positive (NEGATIVE) H Urine Marijuana (THC) Screen Negative (NEGATIVE) ELIU NAPIER Jul 17, 2016 20:21
[2016-07-17] MEDS: Heparin 5000 units/ml inj SUBQ SCH (21:14)
--- NOTE | 2016-07-17 22:28 | Consultation ---
DATE OF CONSULTATION: 07/17/2016 CARDIOLOGY CONSULTATION CONSULTING PHYSICIAN: Estuardo Moss M.D. REFERRING PHYSICIAN: Mo Rosenberg M.D. REASON FOR REFERRAL: Congestive heart failure. HISTORY OF PRESENT ILLNESS: This is a middle-aged female with history of congestive heart failure and cardiomyopathy, apparently had some kind of a cardiac arrest and noncompliance to medications, who has been in and out of the hospital two occasions, this one being second after few days leaving the hospital, coming back shortness of breath, shortness of breath when she lays down, shortness of breath waking her up at night, shortness of breath with activity, dizziness, lightheadedness on standing, heart pounding, palpitations. PAST MEDICAL HISTORY: Positive for high blood pressure. She has had a history of congestive heart failure and history of some kind of a cardiac arrest. No cancer. No stroke, hepatitis, tuberculosis, asthma, emphysema. No ulcers. No kidney problems, liver problems, thyroid problems, anemia, or arthritis. ALLERGIES: She denies any allergies to medications. SOCIAL HISTORY: She does smoke, she does drink, and she is alcoholic. She does use drugs, although she tells me that her last time she used drug was approximately two months ago, crystal methamphetamine. REVIEW OF SYSTEMS: Gastrointestinal: Negative. Genitourinary: Negative. Pulmonary: Negative. Constitutional: Negative. PHYSICAL EXAMINATION: GENERAL: Shows to be obese elderly female, in no apparent distress, although she appear somewhat drowsy. NECK: Supple. No jugular venous distention. LUNGS: Crackles noted at the right breast. CARDIAC: Regular rate and rhythm. No heaves, thrills, gallops, or rubs are noted. ABDOMEN: Soft and obese. Positive bowel sounds. Nontender. EXTREMITIES: A 1 to 2+ edema of the lower extremities below her knee. NEUROLOGICAL: She is awake and responsive, although somewhat drowsy as mentioned. LABORATORY AND DIAGNOSTIC DATA: Her laboratory values are as follows: Her white count is 5.9, hemoglobin 10.7, was 11.8 previously, and platelet count of 166,000. Sodium is 143, potassium 4.2, chloride 102, bicarbonate 29, BUN of 17, creatinine 0.9, and glucose of 96. Liver function tests normal. Two sets of cardiac enzymes are negative. ProBNP is 3050 and INR is 1.2 . Urine drug screen positive for cocaine. Her EKG shows sinus rhythm, left ventricular hypertrophy, and repolarization abnormalities. Her chest x-ray shows congestive heart failure, getting better, and echocardiogram performed a few days ago showed ejection fraction of 10% to 15%, global hypokinesis, severe left ventricular enlargement, and possible severe mitral regurgitation. ASSESSMENT AND PLAN: 1. Congestive heart failure. 2. Hypertension, poorly controlled. 3. Mitral regurgitation. 4. Substance abuse and crack cocaine. 5. Alcohol abuse history. 6. Tobacco abuse history. 7. Obesity. Dr. Rosenberg, this patient was seen in cardiac consultation. The patient is maximized on her KATHLEEN inhibitors and calcium-channel blockers for blood pressure control. Diuretics as well as fluids, sodium restriction, as well as beta-blockers eventually, although because of her cocaine use history, I am hesitant to start her on significant amounts of beta-blockers. Nevertheless, I have explained those issues to her. Hopefully, she will stay in the hospital and long enough to get treated and subsequently will take her medications. She blames lack of insurance card for her not taking medications. Estuardo Moss M.D. DR: MARY JOB#: [id number] CC:
[2016-07-18 00:20] VITALS: BP 137/83
[2016-07-18] MEDS: Norco 5mg/325mg tab ORAL PRN ×2 (04:04→14:00)
[2016-07-18 04:08] VITALS: BP 135/79
[2016-07-18 07:17] LABS: TROPONIN I < 0.30 ng/mL (<=0.30)
[2016-07-18 07:20] LABS: EOSINOPHILS % (AUTO) 3.1 % (0.0-3.0); LYMPHOCYTES % (AUTO) 35.3 % (20.0-45.0); MEAN CORPUSCULAR HEMOGLOBIN 26.9 PG (27.0-31.0); MEAN CORPUSCULAR HGB CONC 30.4 G/DL (32.0-36.0); MEAN CORPUSCULAR VOLUME 88 FL (80-99); MEAN PLATELET VOLUME 8.5 FL (6.5-10.1); MONOCYTES % (AUTO) 10.9 % (1.0-10.0); NEUTROPHILS % (AUTO) 48.6 % (45.0-75.0); PLATELET COUNT 199 K/UL (150-450); RED CELL DISTRIBUTION WIDTH 17.9 % (11.6-14.8); WHITE BLOOD COUNT 4.5 K/UL (4.8-10.8)
[2016-07-18 07:21] LABS: ANION GAP 13 (5-15); CARBON DIOXIDE 29 mEQ/L (20-30); CHLORIDE 100 mEQ/L (98-107); CREATININE 0.8 mg/dL (0.5-0.9); GLOMERULAR FILTRATION RATE > 60 mL/min (>60); HEMOLYSIS 0; PHOSPHORUS 4.5 mg/dL (2.5-4.8); POTASSIUM 4.4 mEQ/L (3.4-4.9); SODIUM 142 mEQ/L (135-145)
[2016-07-18 08:22] VITALS: BP 136/81
[2016-07-18] MEDS: Digoxin 0.125mg tab ORAL SCH (10:05)
[2016-07-18] MEDS: Spironolactone 25mg tab ORAL SCH (10:05)
[2016-07-18] MEDS: Carvedilol 6.25mg Tab ORAL SCH ×2 (10:05→21:25)
[2016-07-18] MEDS: Lisinopril 20mg tab ORAL SCH ×2 (10:06→17:33)
[2016-07-18] MEDS: Heparin 5000 units/ml inj SUBQ SCH ×2 (10:20→21:33)
[2016-07-18 11:39] VITALS: BP 143/95
--- NOTE | 2016-07-18 13:33 | Diagnostic Imaging Report ---
Indication: Dyspnea Comparison: 07/16/16 A single view chest radiograph was obtained. Findings: Mild interstitial edema suspected with cardiomegaly. This has improved since the last exam. Impression: Improved interstitial edema, currently mild
[2016-07-18 16:00] VITALS: BP 133/90
--- NOTE | 2016-07-18 19:15 | Cardiology Progress Note ---
Assessment/Plan Assessment/Plan acute sytolci heart failyure dcm mr htn substanc abuse etoh dn coaicne non complaince inrease antuhypertesnive contienu iv lasix compliance oliverio lbe an issue as she has lost her insurance card she says i son acei and ccb woudl not increase bb too much in light of cocaine abuse hs Subjective Cardiovascular: Denies: chest pain Respiratory: Denies: shortness of breath Gastrointestinal/Abdominal: Denies: abdominal pain Genitourinary: Denies: burning Objective Last 24 Hour Vital Signs Date Time Temp Pulse Resp B/P Pulse Ox O2 Delivery O2 Flow Rate FiO2 07/18/16 17:33 133/90 07/18/16 17:32 86 133/90 07/18/16 16:00 97.7 86 20 133/90 91 Room Air 07/18/16 12:00 88 07/18/16 11:39 97.0 77 18 143/95 93 Room Air 07/18/16 10:06 136/81 07/18/16 10:05 67 136/81 07/18/16 10:05 67 07/18/16 10:05 67 136/81 07/18/16 08:22 96.8 67 18 136/81 95 Room Air 07/18/16 08:00 84 07/18/16 07:46 97 Nasal Cannula 2.0 07/18/16 07:45 Nasal Cannula 2.0 07/18/16 04:08 97.5 78 18 135/79 97 Room Air 07/18/16 04:00 65 07/18/16 00:20 97.7 74 19 137/83 98 Room Air 07/18/16 00:00 75 07/17/16 21:20 90 147/109 07/17/16 21:12 90 147/109 07/17/16 20:00 90 18 147/109 Nasal Cannula 2.0 99 07/17/16 19:46 97 Nasal Cannula 2.0 28 07/17/16 19:46 Nasal Cannula 2.0 28 07/17/16 19:45 78 18 Nasal Cannula 2.0 28 General Appearance: no apparent distress, alert Neck: supple Cardiovascular: normal rate, regular rhythm Respiratory/Chest: lungs clear, normal breath sounds Abdomen: normal bowel sounds, non tender, soft Extremities: no swelling Intake and Output 07/17/16 07/18/16 19:00 07:00 # Voids 1 1 Laboratory Tests Test 07/18/16 05:15 White Blood Count 4.5 K/UL (4.8-10.8) L Red Blood Count 4.30 M/UL (4.20-5.40) Hemoglobin 11.5 G/DL (12.0-16.0) L Hematocrit 38.0 % (37.0-47.0) Mean Corpuscular Volume 88 FL (80-99) Mean Corpuscular Hemoglobin 26.9 PG (27.0-31.0) L Mean Corpuscular Hemoglobin Concent 30.4 G/DL (32.0-36.0) L Red Cell Distribution Width 17.9 % (11.6-14.8) H Platelet Count 199 K/UL (150-450) Mean Platelet Volume 8.5 FL (6.5-10.1) Neutrophils (%) (Auto) 48.6 % (45.0-75.0) Lymphocytes (%) (Auto) 35.3 % (20.0-45.0) Monocytes (%) (Auto) 10.9 % (1.0-10.0) H Eosinophils (%) (Auto) 3.1 % (0.0-3.0) H Basophils (%) (Auto) 2.0 % (0.0-2.0) Sodium Level 142 mEQ/L (135-145) Potassium Level 4.4 mEQ/L (3.4-4.9) Chloride Level 100 mEQ/L (98-107) Carbon Dioxide Level 29 mEQ/L (20-30) Anion Gap 13 (5-15) Blood Urea Nitrogen 20 mg/dL (7-23) Creatinine 0.8 mg/dL (0.5-0.9) Estimat Glomerular Filtration Rate > 60 mL/min (>60) Glucose Level 83 mg/dL (74-106) Calcium Level 9.0 mg/dL (8.6-10.2) Phosphorus Level 4.5 mg/dL (2.5-4.8) Troponin I < 0.30 ng/mL (<=0.30) Albumin 3.6 g/dL (3.5-5.2) Microbiology Date/Time Source Procedure Growth Status 07/17/16 16:00 Sputum Gram Stain - Final Resulted 07/17/16 16:00 Sputum Sputum Culture - Preliminary NO GROWTH Resulted ELIU NAPIER Jul 18, 2016 19:15
[2016-07-18 20:00] VITALS: BP 138/93
--- NOTE | 2016-07-18 23:27 | Pulmonology Progress Note ---
Assessment/Plan Problems: (1) Acute exacerbation of CHF (congestive heart failure) (2) Noncompliance (3) Obesity (BMI 30.0-34.9) (4) Anemia, chronic disease (5) Obesity Assessment/Plan diuretics iv antibiotics respiratory treatment optimize cardiac meds. Subjective ROS Limited/Unobtainable: No Interval Events: improving Allergies: Coded Allergies: No Known Allergies (Unverified , 07/10/16) Objective Last 24 Hour Vital Signs Date Time Temp Pulse Resp B/P Pulse Ox O2 Delivery O2 Flow Rate FiO2 07/18/16 21:25 101 138/93 07/18/16 20:00 83 07/18/16 20:00 98.1 101 18 138/93 96 Room Air 07/18/16 19:42 97 Room Air 07/18/16 19:42 Room Air 07/18/16 17:33 133/90 07/18/16 17:32 86 133/90 07/18/16 16:00 97.7 86 20 133/90 91 Room Air 07/18/16 16:00 86 07/18/16 12:00 88 07/18/16 11:39 97.0 77 18 143/95 93 Room Air 07/18/16 10:06 136/81 07/18/16 10:05 67 136/81 07/18/16 10:05 67 07/18/16 10:05 67 136/81 07/18/16 08:22 96.8 67 18 136/81 95 Room Air 07/18/16 08:00 84 07/18/16 07:46 97 Nasal Cannula 2.0 07/18/16 07:45 Nasal Cannula 2.0 07/18/16 04:08 97.5 78 18 135/79 97 Room Air 07/18/16 04:00 65 07/18/16 00:20 97.7 74 19 137/83 98 Room Air 07/18/16 00:00 75 Intake and Output 07/17/16 07/18/16 19:00 07:00 # Voids 1 1 Objective General Appearance: WD/WN HEENT: normocephalic, atraumatic Respiratory/Chest: chest wall non-tender, lungs clear Cardiovascular: normal peripheral pulses, normal rate Abdomen: normal bowel sounds, soft, non tender, other Extremities: no cyanosis, no clubbing Skin: no rash Microbiology Date/Time Source Procedure Growth Status 07/17/16 16:00 Sputum Gram Stain - Final Resulted 07/17/16 16:00 Sputum Sputum Culture - Preliminary NO GROWTH Resulted Laboratory Tests 07/18/16 05:15: White Blood Count 4.5L, Red Blood Count 4.30, Hemoglobin 11.5L, Hematocrit 38.0 , Mean Corpuscular Volume 88, Mean Corpuscular Hemoglobin 26.9L, Mean Corpuscular Hemoglobin Concent 30.4L, Red Cell Distribution Width 17.9H, Platelet Count 199, Mean Platelet Volume 8.5, Neutrophils (%) (Auto) 48.6, Lymphocytes (%) (Auto) 35.3, Monocytes (%) (Auto) 10.9H, Eosinophils (%) (Auto) 3.1H, Basophils (%) (Auto) 2.0, Sodium Level 142, Potassium Level 4.4, Chloride Level 100, Carbon Dioxide Level 29, Anion Gap 13, Blood Urea Nitrogen 20, Creatinine 0.8, Estimat Glomerular Filtration Rate > 60, Glucose Level 83, Calcium Level 9.0, Phosphorus Level 4.5, Troponin I < 0.30, Albumin 3.6 Current Medications Medications (Trade) Dose Ordered Sig/Fitz Route PRN Reason Start Time Stop Time Status Last Admin Dose Admin Acetaminophen (Tylenol) 650 mg Q4H PRN ORAL Fever 07/17/16 11:00 08/16/16 10:59 Acetaminophen/ Hydrocodone Bitart 1 tab 1 tab Q6H PRN ORAL For Pain 07/17/16 13:00 07/24/16 12:59 07/18/16 14:00 Albuterol/ Ipratropium (DuoNeb 0.5-3(2.5)mg/3ml) 3 ml Q4H PRN HHN Shortness of Breath 07/17/16 11:00 07/22/16 10:59 Amlodipine Besylate (Norvasc) 5 mg BID ORAL 07/19/16 09:00 08/18/16 08:59 Atorvastatin Calcium (Lipitor) 10 mg BEDTIME ORAL 07/17/16 21:00 08/16/16 20:59 07/18/16 21:25 Carvedilol (Coreg) 6.25 mg EVERY 12 HOURS ORAL 07/17/16 12:00 08/16/16 11:59 07/18/16 21:25 Dextrose (Dextrose 50%) STAT PRN IV Hypoglycemia 07/17/16 11:00 08/16/16 10:59 Digoxin (Lanoxin) 0.125 mg DAILY ORAL 07/17/16 12:00 08/16/16 11:59 07/18/16 10:05 Furosemide (Lasix) 40 mg EVERY 8 HOURS IV 07/17/16 14:00 08/16/16 13:59 07/18/16 21:25 Heparin Sodium (Porcine) (Heparin 5000 units/ml) 5,000 units EVERY 12 HOURS SUBQ 07/17/16 21:00 08/16/16 20:59 07/18/16 21:33 Levofloxacin (Levaquin) 100 ml @ 100 mls/hr Q24H IVPB 07/17/16 16:00 07/24/16 15:59 07/18/16 17:32 Lisinopril (Prinivil) 20 mg BID ORAL 07/18/16 09:00 08/17/16 08:59 07/18/16 17:33 Ondansetron HCl (Zofran) 4 mg Q6H PRN IVP Nausea & Vomiting 07/17/16 11:00 08/16/16 10:59 Polyethylene Glycol (Miralax) 17 gm DAILYPRN PRN ORAL Constipation 07/17/16 11:00 08/16/16 10:59 07/18/16 13:58 Promethazine HCl/ Codeine (Phenergan with Codeine) 5 ml Q4H PRN ORAL For Cough 07/17/16 13:45 08/16/16 13:44 Spironolactone (Aldactone) 25 mg DAILY ORAL 07/18/16 09:00 08/17/16 08:59 07/18/16 10:05 Temazepam (Restoril) 15 mg HSPRN PRN ORAL Insomnia 07/17/16 11:00 07/24/16 10:59 MARIA A MEDINA Jul 18, 2016 23:27
[2016-07-19] VITALS: BP 120/55
[2016-07-19] MEDS: Norco 5mg/325mg tab ORAL PRN ×4 (01:47→23:02)
[2016-07-19 04:00] VITALS: BP 116/71
[2016-07-19 08:00] VITALS: BP 130/90
[2016-07-19] MEDS: Carvedilol 6.25mg Tab ORAL SCH ×2 (10:15→21:43)
[2016-07-19] MEDS: Lisinopril 20mg tab ORAL SCH ×2 (10:16→18:11)
[2016-07-19] MEDS: Digoxin 0.125mg tab ORAL SCH (10:16)
[2016-07-19] MEDS: Spironolactone 25mg tab ORAL SCH (10:16)
[2016-07-19] MEDS: Heparin 5000 units/ml inj SUBQ SCH ×2 (10:19→21:47)
[2016-07-19 11:27] VITALS: BP 114/46
[2016-07-19 11:55] LABS: TROPONIN I < 0.30 ng/mL (<=0.30)
--- NOTE | 2016-07-19 12:16 | Pulmonology Progress Note ---
Assessment/Plan Problems: (1) Acute exacerbation of CHF (congestive heart failure) (2) Noncompliance (3) Obesity (BMI 30.0-34.9) (4) Anemia, chronic disease (5) Obesity Assessment/Plan diuretics iv antibiotics respiratory treatment optimize cardiac meds. Subjective ROS Limited/Unobtainable: No Interval Events: feeling better Allergies: Coded Allergies: No Known Allergies (Unverified , 07/10/16) Objective Last 24 Hour Vital Signs Date Time Temp Pulse Resp B/P Pulse Ox O2 Delivery O2 Flow Rate FiO2 07/19/16 11:27 97.7 79 18 114/46 92 Room Air 07/19/16 10:16 130/90 07/19/16 10:16 94 07/19/16 10:15 94 130/90 07/19/16 10:15 94 130/90 07/19/16 08:00 97.9 94 18 130/90 94 Room Air 07/19/16 07:46 Nasal Cannula 2.0 07/19/16 07:45 96 Nasal Cannula 2.0 07/19/16 04:00 97.5 78 20 116/71 90 Room Air 07/19/16 04:00 68 07/19/16 00:00 97.9 79 20 120/55 95 Room Air 07/19/16 00:00 69 07/18/16 21:25 101 138/93 07/18/16 20:00 83 07/18/16 20:00 98.1 101 18 138/93 96 Room Air 07/18/16 19:42 97 Room Air 07/18/16 19:42 Room Air 07/18/16 17:33 133/90 07/18/16 17:32 86 133/90 07/18/16 16:00 97.7 86 20 133/90 91 Room Air 07/18/16 16:00 86 Intake and Output 07/18/16 07/19/16 19:00 07:00 Intake Total 870 ml 720 ml Balance 870 ml 720 ml Intake Oral 770 ml 720 ml IV Total 100 ml # Voids 4 4 Objective General Appearance: WD/WN HEENT: normocephalic, atraumatic Respiratory/Chest: chest wall non-tender, lungs clear Cardiovascular: normal peripheral pulses, normal rate Abdomen: normal bowel sounds, soft, non tender, other Extremities: no cyanosis, no clubbing Skin: no rash Microbiology Date/Time Source Procedure Growth Status 07/17/16 16:00 Sputum Gram Stain - Final Complete 07/17/16 16:00 Sputum Sputum Culture - Final NORMAL UPPER RESPIRATORY TIFFANY PRESENT Complete Laboratory Tests 07/19/16 11:15: Troponin I < 0.30 Current Medications Medications (Trade) Dose Ordered Sig/Fitz Route PRN Reason Start Time Stop Time Status Last Admin Dose Admin Acetaminophen (Tylenol) 650 mg Q4H PRN ORAL Fever 07/17/16 11:00 08/16/16 10:59 Acetaminophen/ Hydrocodone Bitart 1 tab 1 tab Q6H PRN ORAL For Pain 07/17/16 13:00 07/24/16 12:59 07/19/16 10:21 Albuterol/ Ipratropium (DuoNeb 0.5-3(2.5)mg/3ml) 3 ml Q4H PRN HHN Shortness of Breath 07/17/16 11:00 07/22/16 10:59 Amlodipine Besylate (Norvasc) 5 mg BID ORAL 07/19/16 09:00 08/18/16 08:59 07/19/16 10:15 Atorvastatin Calcium (Lipitor) 10 mg BEDTIME ORAL 07/17/16 21:00 08/16/16 20:59 07/18/16 21:25 Carvedilol (Coreg) 6.25 mg EVERY 12 HOURS ORAL 07/17/16 12:00 08/16/16 11:59 07/19/16 10:15 Dextrose (Dextrose 50%) STAT PRN IV Hypoglycemia 07/17/16 11:00 08/16/16 10:59 Digoxin (Lanoxin) 0.125 mg DAILY ORAL 07/17/16 12:00 08/16/16 11:59 07/19/16 10:16 Furosemide (Lasix) 40 mg EVERY 8 HOURS IV 07/17/16 14:00 08/16/16 13:59 07/19/16 06:14 Heparin Sodium (Porcine) (Heparin 5000 units/ml) 5,000 units EVERY 12 HOURS SUBQ 07/17/16 21:00 08/16/16 20:59 07/19/16 10:19 Levofloxacin (Levaquin) 100 ml @ 100 mls/hr Q24H IVPB 07/17/16 16:00 07/24/16 15:59 07/18/16 17:32 Lisinopril (Prinivil) 20 mg BID ORAL 07/18/16 09:00 08/17/16 08:59 07/19/16 10:16 Ondansetron HCl (Zofran) 4 mg Q6H PRN IVP Nausea & Vomiting 07/17/16 11:00 08/16/16 10:59 Polyethylene Glycol (Miralax) 17 gm DAILYPRN PRN ORAL Constipation 07/17/16 11:00 08/16/16 10:59 07/18/16 13:58 Promethazine HCl/ Codeine (Phenergan with Codeine) 5 ml Q4H PRN ORAL For Cough 07/17/16 13:45 08/16/16 13:44 Spironolactone (Aldactone) 25 mg DAILY ORAL 07/18/16 09:00 08/17/16 08:59 07/19/16 10:16 Temazepam (Restoril) 15 mg HSPRN PRN ORAL Insomnia 07/17/16 11:00 07/24/16 10:59 MARIA A MEDINA Jul 19, 2016 12:16
--- NOTE | 2016-07-19 12:27 | Cardiology Progress Note ---
Assessment/Plan Assessment/Plan acute sytolci heart failyure dcm mr htn substanc abuse etoh dn coaicne non complaince home today ? compliance oliverio lbe an issue as she has lost her insurance card she says is on acei and ccb would not increase bb too much in light of cocaine abuse hs Subjective Cardiovascular: Denies: chest pain, lightheadedness Respiratory: Denies: orthopnea, shortness of breath Gastrointestinal/Abdominal: Denies: abdominal pain Genitourinary: Denies: burning Objective Last 24 Hour Vital Signs Date Time Temp Pulse Resp B/P Pulse Ox O2 Delivery O2 Flow Rate FiO2 07/19/16 11:27 97.7 79 18 114/46 92 Room Air 07/19/16 10:16 130/90 07/19/16 10:16 94 07/19/16 10:15 94 130/90 07/19/16 10:15 94 130/90 07/19/16 08:00 97.9 94 18 130/90 94 Room Air 07/19/16 07:46 Nasal Cannula 2.0 07/19/16 07:45 96 Nasal Cannula 2.0 07/19/16 04:00 97.5 78 20 116/71 90 Room Air 07/19/16 04:00 68 07/19/16 00:00 97.9 79 20 120/55 95 Room Air 07/19/16 00:00 69 07/18/16 21:25 101 138/93 07/18/16 20:00 83 07/18/16 20:00 98.1 101 18 138/93 96 Room Air 07/18/16 19:42 97 Room Air 07/18/16 19:42 Room Air 07/18/16 17:33 133/90 07/18/16 17:32 86 133/90 07/18/16 16:00 97.7 86 20 133/90 91 Room Air 07/18/16 16:00 86 General Appearance: alert Neck: no JVD Cardiovascular: normal rate, regular rhythm Respiratory/Chest: lungs clear Abdomen: normal bowel sounds, non tender, soft Extremities: no swelling Intake and Output 07/18/16 07/19/16 19:00 07:00 Intake Total 870 ml 720 ml Balance 870 ml 720 ml Intake Oral 770 ml 720 ml IV Total 100 ml # Voids 4 4 Laboratory Tests Test 3/11/17 11:15 Troponin I < 0.30 ng/mL (<=0.30) Microbiology Date/Time Source Procedure Growth Status 07/17/16 16:00 Sputum Gram Stain - Final Complete 07/17/16 16:00 Sputum Sputum Culture - Final NORMAL UPPER RESPIRATORY TIFFANY PRESENT Complete ELIU NAPIER Jul 19, 2016 12:27
--- NOTE | 2016-07-19 15:05 | Cardiology Report ---
APPROVED REPORT EKG Measurement Heart [id number] Normal sinus rhythm Biatrial enlargement Left ventricular hypertrophy T wave abnormality, consider lateral ischemia Prolonged QT Abnormal ECG
[2016-07-19 16:00] VITALS: BP 114/84
[2016-07-20 00:26] VITALS: BP 103/59
[2016-07-20 04:23] VITALS: BP 114/70
[2016-07-20 08:02] VITALS: BP 132/84
[2016-07-20] MEDS: Norco 5mg/325mg tab ORAL PRN ×2 (08:09→16:15)
[2016-07-20] MEDS: Spironolactone 25mg tab ORAL SCH (08:10)
[2016-07-20] MEDS: Carvedilol 6.25mg Tab ORAL SCH ×2 (08:10→21:08)
[2016-07-20] MEDS: Lisinopril 20mg tab ORAL SCH ×2 (08:11→18:45)
[2016-07-20] MEDS: Digoxin 0.125mg tab ORAL SCH (08:11)
[2016-07-20] MEDS: Heparin 5000 units/ml inj SUBQ SCH ×2 (08:13→21:10)
[2016-07-20 11:38] VITALS: BP 121/75
--- NOTE | 2016-07-20 13:29 | Cardiology Progress Note ---
Assessment/Plan Assessment/Plan acute sytolci heart failyure dcm mr htn substanc abuse etoh dn coaicne non complaince d/c plan per dr lopez recommneded that she approach the same pharmacy she had precviualy to obtian meds as inurance infor should be available there is on acei and ccb would not increase bb too much in light of cocaine abuse hs bp is better Subjective Cardiovascular: Denies: chest pain, lightheadedness Respiratory: Reports: shortness of breath - is better Gastrointestinal/Abdominal: Denies: abdominal pain Genitourinary: Denies: burning Objective Last 24 Hour Vital Signs Date Time Temp Pulse Resp B/P Pulse Ox O2 Delivery O2 Flow Rate FiO2 07/20/16 12:00 74 07/20/16 11:38 97.7 65 18 121/75 92 Room Air 07/20/16 08:11 72 132/84 07/20/16 08:11 132/84 07/20/16 08:11 72 07/20/16 08:10 72 132/84 07/20/16 08:02 97.3 72 18 132/84 92 Room Air 07/20/16 08:00 69 07/20/16 07:46 Nasal Cannula 2.0 07/20/16 07:45 97 Nasal Cannula 2.0 07/20/16 04:23 98.7 73 20 114/70 96 Room Air 07/20/16 04:00 82 07/20/16 00:26 98.7 76 19 103/59 98 Room Air 07/20/16 00:00 72 07/19/16 21:43 93 133/82 07/19/16 20:00 76 07/19/16 19:11 Room Air 07/19/16 19:11 96 Room Air 07/19/16 18:11 94 114/84 07/19/16 18:11 114/84 07/19/16 16:00 99.0 94 21 114/84 94 Room Air 07/19/16 16:00 81 General Appearance: no apparent distress, alert Neck: supple Cardiovascular: normal rate, regular rhythm Respiratory/Chest: lungs clear, normal breath sounds Abdomen: normal bowel sounds, non tender, soft Extremities: no swelling Intake and Output 07/19/16 07/20/16 19:00 07:00 Intake Total 820 ml 360 ml Balance 820 ml 360 ml Intake Oral 820 ml 360 ml # Voids 5 2 Microbiology Date/Time Source Procedure Growth Status 07/17/16 16:00 Sputum Gram Stain - Final Complete 07/17/16 16:00 Sputum Sputum Culture - Final NORMAL UPPER RESPIRATORY TIFFANY PRESENT Complete ELIU NAPIER Jul 20, 2016 13:29
[2016-07-20 16:00] VITALS: BP 118/70
[2016-07-20] MEDS ORDERED: Levofloxacin 500mg tab ORAL SCH (16:30)
--- NOTE | 2016-07-20 23:11 | Pulmonology Progress Note ---
Assessment/Plan Problems: (1) Acute exacerbation of CHF (congestive heart failure) (2) Noncompliance (3) Obesity (BMI 30.0-34.9) (4) Anemia, chronic disease (5) Obesity Assessment/Plan diuretics iv antibiotics respiratory treatment optimize cardiac meds. improving dc planning Subjective ROS Limited/Unobtainable: No Interval Events: feeling better Allergies: Coded Allergies: No Known Allergies (Unverified , 07/10/16) Objective Last 24 Hour Vital Signs Date Time Temp Pulse Resp B/P Pulse Ox O2 Delivery O2 Flow Rate FiO2 07/20/16 21:08 74 118/70 07/20/16 19:52 Room Air 07/20/16 19:52 95 Room Air 07/20/16 18:45 118/70 07/20/16 18:44 74 118/70 07/20/16 17:14 97.7 07/20/16 16:00 66 07/20/16 16:00 97.7 74 18 118/70 92 Room Air 07/20/16 12:00 74 07/20/16 11:38 97.7 65 18 121/75 92 Room Air 07/20/16 08:11 72 132/84 07/20/16 08:11 132/84 07/20/16 08:11 72 07/20/16 08:10 72 132/84 07/20/16 08:02 97.3 72 18 132/84 92 Room Air 07/20/16 08:00 69 07/20/16 07:46 Nasal Cannula 2.0 07/20/16 07:45 97 Nasal Cannula 2.0 07/20/16 04:23 98.7 73 20 114/70 96 Room Air 07/20/16 04:00 82 07/20/16 00:26 98.7 76 19 103/59 98 Room Air 07/20/16 00:00 72 Intake and Output 07/19/16 07/20/16 19:00 07:00 Intake Total 820 ml 360 ml Balance 820 ml 360 ml Intake Oral 820 ml 360 ml # Voids 5 2 Objective General Appearance: WD/WN HEENT: normocephalic, atraumatic Respiratory/Chest: chest wall non-tender, lungs clear Cardiovascular: normal peripheral pulses, normal rate Abdomen: normal bowel sounds, soft, non tender, other Extremities: no cyanosis, no clubbing Skin: no rash Current Medications Medications (Trade) Dose Ordered Sig/Fitz Route PRN Reason Start Time Stop Time Status Last Admin Dose Admin Acetaminophen (Tylenol) 650 mg Q4H PRN ORAL Fever 07/17/16 11:00 08/16/16 10:59 Acetaminophen/ Hydrocodone Bitart ([place] 5/325) 1 tab Q6H PRN ORAL For Pain 07/17/16 13:00 07/24/16 12:59 07/20/16 16:15 Albuterol/ Ipratropium (DuoNeb 0.5-3(2.5)mg/3ml) 3 ml Q4H PRN HHN Shortness of Breath 07/17/16 11:00 07/22/16 10:59 Amlodipine Besylate (Norvasc) 5 mg BID ORAL 07/19/16 09:00 08/18/16 08:59 07/20/16 18:44 Atorvastatin Calcium (Lipitor) 10 mg BEDTIME ORAL 07/17/16 21:00 08/16/16 20:59 07/20/16 21:08 Carvedilol (Coreg) 6.25 mg EVERY 12 HOURS ORAL 07/17/16 12:00 08/16/16 11:59 07/20/16 21:08 Dextrose (Dextrose 50%) STAT PRN IV Hypoglycemia 07/17/16 11:00 08/16/16 10:59 Digoxin (Lanoxin) 0.125 mg DAILY ORAL 07/17/16 12:00 08/16/16 11:59 07/20/16 08:11 Furosemide (Lasix) 40 mg EVERY 8 HOURS IV 07/17/16 14:00 08/16/16 13:59 07/20/16 21:08 Heparin Sodium (Porcine) (Heparin 5000 units/ml) 5,000 units EVERY 12 HOURS SUBQ 07/17/16 21:00 08/16/16 20:59 07/20/16 21:10 Levofloxacin (Levaquin) 500 mg DAILY@1630 ORAL 07/20/16 16:30 07/24/16 15:59 07/20/16 16:16 Lisinopril (Prinivil) 20 mg BID ORAL 07/18/16 09:00 08/17/16 08:59 07/20/16 18:45 Ondansetron HCl (Zofran) 4 mg Q6H PRN IVP Nausea & Vomiting 07/17/16 11:00 08/16/16 10:59 Polyethylene Glycol (Miralax) 17 gm DAILYPRN PRN ORAL Constipation 07/17/16 11:00 08/16/16 10:59 07/18/16 13:58 Promethazine HCl/ Codeine (Phenergan with Codeine) 5 ml Q4H PRN ORAL For Cough 07/17/16 13:45 08/16/16 13:44 Spironolactone (Aldactone) 25 mg DAILY ORAL 07/18/16 09:00 08/17/16 08:59 07/20/16 08:10 Temazepam (Restoril) 15 mg HSPRN PRN ORAL Insomnia 07/17/16 11:00 07/24/16 10:59 MARIA A MEDINA Jul 20, 2016 23:11
[2016-07-21] MEDS: Norco 5mg/325mg tab ORAL PRN ×2 (00:06→09:46)
[2016-07-21 00:36] VITALS: BP 140/79
[2016-07-21 04:11] VITALS: BP 101/65
[2016-07-21 08:04] VITALS: BP 129/74
[2016-07-21] MEDS: Spironolactone 25mg tab ORAL SCH (09:05)
[2016-07-21] MEDS: Digoxin 0.125mg tab ORAL SCH (09:05)
[2016-07-21] MEDS: Lisinopril 20mg tab ORAL SCH (09:05)
[2016-07-21] MEDS: Carvedilol 6.25mg Tab ORAL SCH (09:05)
[2016-07-21] MEDS: Heparin 5000 units/ml inj SUBQ SCH (09:07)
[2016-07-21 11:38] VITALS: BP 106/70
--- NOTE | 2016-07-21 14:29 | Pulmonology Progress Note ---
Assessment/Plan Problems: (1) Acute exacerbation of CHF (congestive heart failure) (2) Noncompliance (3) Obesity (BMI 30.0-34.9) (4) Anemia, chronic disease (5) Obesity Assessment/Plan diuretics iv antibiotics respiratory treatment optimize cardiac meds. improving dc planning for today Subjective ROS Limited/Unobtainable: No Allergies: Coded Allergies: No Known Allergies (Unverified , 07/10/16) Objective Last 24 Hour Vital Signs Date Time Temp Pulse Resp B/P Pulse Ox O2 Delivery O2 Flow Rate FiO2 07/21/16 11:38 96.9 84 18 106/70 95 Room Air 07/21/16 09:05 78 129/74 07/21/16 09:05 129/74 07/21/16 09:05 78 07/21/16 09:05 78 129/74 07/21/16 08:04 97.3 78 18 129/74 96 Room Air 07/21/16 07:25 Room Air 21 07/21/16 07:25 98 Room Air 21 07/21/16 04:11 98.5 69 19 101/65 98 Room Air 07/21/16 04:00 65 07/21/16 00:36 98.2 87 20 140/79 95 Room Air 07/21/16 00:00 73 07/20/16 21:08 74 118/70 07/20/16 20:00 86 07/20/16 19:52 Room Air 07/20/16 19:52 95 Room Air 07/20/16 18:45 118/70 07/20/16 18:44 74 118/70 07/20/16 17:14 97.7 07/20/16 16:00 66 07/20/16 16:00 97.7 74 18 118/70 92 Room Air Intake and Output 07/20/16 07/21/16 19:00 07:00 Intake Total 800 ml 500 ml Balance 800 ml 500 ml Intake Oral 800 ml 500 ml # Voids 3 3 Objective General Appearance: WD/WN HEENT: normocephalic, atraumatic Respiratory/Chest: chest wall non-tender, lungs clear Cardiovascular: normal peripheral pulses, normal rate Abdomen: normal bowel sounds, soft, non tender, other Extremities: no cyanosis, no clubbing Skin: no rash Current Medications Medications (Trade) Dose Ordered Sig/Fitz Route PRN Reason Start Time Stop Time Status Last Admin Dose Admin Acetaminophen (Tylenol) 650 mg Q4H PRN ORAL Fever 07/17/16 11:00 08/16/16 10:59 Acetaminophen/ Hydrocodone Bitart ([place] 5/325) 1 tab Q6H PRN ORAL For Pain 07/17/16 13:00 07/24/16 12:59 07/21/16 09:46 Albuterol/ Ipratropium (DuoNeb 0.5-3(2.5)mg/3ml) 3 ml Q4H PRN HHN Shortness of Breath 07/17/16 11:00 07/22/16 10:59 Amlodipine Besylate (Norvasc) 5 mg BID ORAL 07/19/16 09:00 08/18/16 08:59 07/21/16 09:05 Atorvastatin Calcium (Lipitor) 10 mg BEDTIME ORAL 07/17/16 21:00 08/16/16 20:59 07/20/16 21:08 Carvedilol (Coreg) 6.25 mg EVERY 12 HOURS ORAL 07/17/16 12:00 08/16/16 11:59 07/21/16 09:05 Dextrose (Dextrose 50%) STAT PRN IV Hypoglycemia 07/17/16 11:00 08/16/16 10:59 Digoxin (Lanoxin) 0.125 mg DAILY ORAL 07/17/16 12:00 08/16/16 11:59 07/21/16 09:05 Furosemide (Lasix) 40 mg EVERY 8 HOURS IV 07/17/16 14:00 08/16/16 13:59 07/21/16 13:49 Heparin Sodium (Porcine) (Heparin 5000 units/ml) 5,000 units EVERY 12 HOURS SUBQ 07/17/16 21:00 08/16/16 20:59 07/21/16 09:07 Levofloxacin (Levaquin) 500 mg DAILY@1630 ORAL 07/20/16 16:30 07/24/16 15:59 07/20/16 16:16 Lisinopril (Prinivil) 20 mg BID ORAL 07/18/16 09:00 08/17/16 08:59 07/21/16 09:05 Ondansetron HCl (Zofran) 4 mg Q6H PRN IVP Nausea & Vomiting 07/17/16 11:00 08/16/16 10:59 Polyethylene Glycol (Miralax) 17 gm DAILYPRN PRN ORAL Constipation 07/17/16 11:00 08/16/16 10:59 07/18/16 13:58 Promethazine HCl/ Codeine (Phenergan with Codeine) 5 ml Q4H PRN ORAL For Cough 07/17/16 13:45 08/16/16 13:44 Spironolactone (Aldactone) 25 mg DAILY ORAL 07/18/16 09:00 08/17/16 08:59 07/21/16 09:05 Temazepam (Restoril) 15 mg HSPRN PRN ORAL Insomnia 07/17/16 11:00 07/24/16 10:59 MARIA A MEDINA Jul 21, 2016 14:29
--- NOTE | 2016-07-21 14:32 | Cardiology Report ---
APPROVED REPORT EXAM: Two-dimensional and M-mode echocardiogram with Doppler and color Doppler. INDICATION Left Ventricular Function Limited Echo study. Patient requested to terminate this echo study early due to her fatigue. Severe left ventricular enlargement. Left ventricular severe hypokinesis. ALL TREVIZO REGIONS WERE NOT FULLY EVALUATED STUDY WAS TERMINATED. Left ventricular ejection fraction estimated to be 10-15 %. No evidence left ventricular hypertrophy. No evidence of pericardial fat or effusion. Moderate left atrial enlargement. Right atrium not visualized. Right venticle appears enlarged. Mild focal aortic valve sclerosis with adequate cusp excursion. Mildly thickened mitral valve leaflets with normal excursion. Mild mitral annulus and aortic root calcification. Pulmonic valve not visualized. Normal tricuspid valve structure. No subcostal views obtained. A color flow and spectral Doppler study was performed and revealed: Possible mild mitral regurgitation. Follow-up Echo study strongly reccommended.
[2016-07-22] MEDS ORDERED: AMLODIPINE BESYL5 MG ORAL (13:55)
[2016-07-22] MEDS ORDERED: LISINOPRIL10 MG ORAL (13:55)
--- NOTE | 2016-07-22 14:03 | Discharge Summary ---
Discharge Summary Hospital Course Date of Admission Jul 16, 2016 at 23:30 Date of Discharge Jul 21, 2016 at 14:37 Admitting Diagnosis congestive heart failure ROLF Mckenzie is a 51 year old female who was admitted on Jul 16, 2016 at 23: 30 for Congestive Heart Failure Hospital Course dc summary #[id number] Discharge Medications New Medications: Amlodipine Besylate* (Amlodipine Besylate*) 5 Mg Tablet 5 MG ORAL BID, #60 TAB Changed Medications: Lisinopril* (Lisinopril*) 10 Mg Tablet 20 MG ORAL BID, #60 TAB (Changed from: 10 MG; DAILY) Continued Medications: Atorvastatin Calcium* (Lipitor*) 10 Mg Tablet 10 MG ORAL BEDTIME, TAB Digoxin* (Digoxin*) 125 Mcg Tablet 125 MCG ORAL DAILY, TAB Furosemide* (Lasix*) 40 Mg Tablet 40 MG ORAL DAILY, TAB Discharge Condition Upon Discharge: stable Discharge Disposition Patient was discharged to Home (01) Discharge Diagnoses: Discharge Instructions Discharge Instructions Special Instructions I have been assigned to complete a D/C Summary on this account. I was not involved in the patient management Tasha Davis NP ([place]) Jul 22, 2016 14:03
--- NOTE | 2016-07-23 03:28 | Discharge Summary 2 SIG ---
DATE OF ADMISSION: 07/16/2016 DATE OF DISCHARGE: 07/21/2016 REASON FOR ADMISSION: A 51-year-old old female presented to emergency room complaining of shortness of breath and generalized pain. She denied chest pain or palpitations. No nausea. No vomiting. No fevers. No chills. She reported shortness of breath worse with exertion, She also reported increased swelling in legs. The patient has a history of cardiomyopathy and congestive heart failure. She was recently hospitalized in [facility], but signed against medical advice few days ago and did not have the medications since then. She claimed that she lost her ID card and was unable to fill prescriptions from the pharmacy. The patient on the previous admission had na echocardiogram, which revealed ejection fraction of 10% to 15%. The patient in need of AICD due to the high risk for sudden cardiac and malignant arrhythmia. EKG showed normal sinus rhythm. No ST changes. Chest x-ray showed cardiomegaly with evidence of congestive heart failure. Elevated pro BNP noted. Troponin negative. Blood pressure was elevated in the emergency room at 168/110. Urine toxicology screen was positive for cocaine.The patient was given Lasix and admitted to the hospital for further management. ADMITTING DIAGNOSES: 1. Acute congestive heart failure exacerbation. 2. Cardiomyopathy. 3. Hypertensive urgency. 4. Obesity. 5. Noncompliance. HOSPITAL STAY: The patient admitted to telemetry floor. Cardiology consult was requested. Corporate Travel Counselor maximized dose of KATHLEEN inhibitor and calcium channel jc to improve blood pressure control. The patient was on diuresis with the Lasix. Electrolytes, intake and output and renal parameters were closely monitored. The patient was on fluid restriction. Supplemental oxygen and pulmonary toilet provided as needed. The patient was counseled on abstinence from street drugs as well as to quit smoking. The patient declined nicotine patch. 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 Echocardiogram revealed ejection fraction of 10% to 15% and severe left ventricular hypokinesis. No evidence of left ventricular hypertrophy . Evidence of mitral regurgitation. Serial troponin x3 were negative, no ischemic ST changes, therefore ruled out for acute PR. Hemoglobin and hematocrit remained at the baseline. The patient was encouraged to comply with the medication regimen. The patient was also explained that she would benefit from AICD, which she declined at this point. Respiratory status improved, edema decreased. The patient was discharged. DISCHARGE DIAGNOSES: 1. Acute congestive heart failure exacerbation. 2. Dilated cardiomyopathy. 3. Hypertensive urgency 4. Noncompliance with medication regimen. 5. Anemia of chronic disease. 6. Obesity. 7. Cocaine abuse. 8. Tobacco abuse. 9. Mitral regurgitation. Mo Rosenberg M.D. I have been assigned to dictate discharge summary on this account and I was not involved in the patient's management. Tasha Diazruma N.PEneida DR: ADINA JOB#: [id number] CC: FAYE
--- NOTE | 2016-07-23 22:52 | Diagnostic Imaging Report ---
APPROVED REPORT CPT Code: 35294 Present Symptoms Lower Extremity Pain: Bilateral BILATERAL: Imaging reveals a patent deep venous system bilaterally. There is no evidence of thrombus within the femoral, popliteal or tibial segments. The greater saphenous veins are also within normal limits. Doppler indicates normal spontaneous flow within these segments.
== END 2016-07-21 14:37 | disposition home or self-care (01) | DRG 194 ==
LOC: EDBD 23:00 → EDUNIT# 23:00 → EMR 23:06 → 2E 23:30 → EDBEDREQ 07-17 09:25
DX: I50.21 Acute systolic (congestive) heart failure (principal); I42.0 Dilated cardiomyopathy; I16.0 Hypertensive urgency; F14.10 Cocaine abuse, uncomplicated; Z91.19 Patient's noncompliance with other medical treatment and regimen; E66.9 Obesity, unspecified; F10.10 Alcohol abuse, uncomplicated; I34.0 Nonrheumatic mitral (valve) insufficiency; D63.8 Anemia in other chronic diseases classified elsewhere; F17.200 Nicotine dependence, unspecified, uncomplicated; I25.2 Old myocardial infarction; F19.10 Other psychoactive substance abuse, uncomplicated
CPT/HCPCS: 36415; 71010; 80048; 80053; 80069; 80300; 81003; 82550; 82553; 83880; 84484; 85025; 87070; 87205; 93005; 93306; 93970; 94664; 94760; J2405

== ENCOUNTER 2016-10-23 01:58 | Inpatient (IN) | payer MEDICAID, OTHER ==
[2016-10-23] VITALS (7 sets, daily range): BP systolic 139–167; BP diastolic 76–113
[~2016-10-23] VITALS: Ht 170.2 cm; Wt 81.2 kg
[~2016-10-23 01:58] MED LIST changes: +AMLODIPINE BESYL5 MG ORAL; +CARVEDILOL3.125 MG ORAL; +COREG3.125 MG ORAL; +DIGOXIN0.125 MG/2 ORAL; +FUROSEMIDE40 MG ORAL; +LORAZEPAM1 MG ORAL; +NITROGLYCERIN0.4 MG SL
[2016-10-23 02:51] LABS: BASOPHILS % (AUTO) 2.2 % (0.0-2.0); EOSINOPHILS % (AUTO) 1.9 % (0.0-3.0); LYMPHOCYTES % (AUTO) 42.7 % (20.0-45.0); MEAN CORPUSCULAR HEMOGLOBIN 25.6 PG (27.0-31.0); MEAN CORPUSCULAR HGB CONC 30.3 G/DL (32.0-36.0); MEAN CORPUSCULAR VOLUME 85 FL (80-99); MEAN PLATELET VOLUME 8.7 FL (6.5-10.1); NEUTROPHILS % (AUTO) 41.2 % (45.0-75.0); PLATELET COUNT 247 K/UL (150-450); RED CELL DISTRIBUTION WIDTH 18.2 % (11.6-14.8); WHITE BLOOD COUNT 5.9 K/UL (4.8-10.8)
--- NOTE | 2016-10-23 02:56 | Emergency Room Report ---
History of Present Illness General Chief Complaint: Dyspnea/Respdistress Source: Patient Present Illness HPI [id number] BIBEMS for acute SOB. Took her Lasix today only. History of non-compliance. Didnt take Carvedilol, Lisinopril or Digoxin today. Seems like she never takes digoxin. 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 Allergies: Coded Allergies: No Known Allergies (Unverified , 07/10/16) Patient History Past Medical History: other - see HPI Pertinent Family History: none Social History: Reports: alcohol use, drug use, smoking Last Menstrual Period: n/a Now: No Immunizations: UTD Reviewed Nursing Documentation: PMH: Agreed, PSxH: Agreed Nursing Documentation-PMH Hx Cardiac Problems: Yes - enlarged heart, CHF Hx Hypertension: Yes Hx COPD: Yes Hx Diabetes: No Hx Cancer: No Hx Gastrointestinal Problems: No Hx Neurological Problems: No Hx Cerebrovascular Accident: Yes Review of Systems All Other Systems: negative except mentioned in HPI Physical Exam Vital Signs Date Time Temp Pulse Resp B/P Pulse Ox O2 Delivery O2 Flow Rate FiO2 10/23/16 01:52 97.9 74 18 154/113 99 Room Air 10/23/16 02:48 2.0 Sp02 EP Interpretation: reviewed, normal General Appearance: normal inspection, well appearing, no apparent distress, alert, GCS 15, non-toxic Head: normocephalic, atraumatic Eyes: bilateral eye EOMI, bilateral eye PERRL ENT: normal ENT inspection, hearing grossly normal, normal voice Neck: normal inspection, full range of motion, supple, no bony tend Respiratory: normal inspection, lungs clear, normal breath sounds, no respiratory distress, no retraction, no accessory muscle use, no wheezing, speaking full sentences Cardiovascular #1: regular rate, rhythm, no edema Gastrointestinal: normal inspection, normal bowel sounds, non tender, soft, no guarding, no hernia Genitourinary: no CVA tenderness Musculoskeletal: normal inspection, back normal, normal range of motion, Niesha' s Sign negative, other - No pitting edema Neurologic: normal inspection, alert, oriented x3, responsive, egg pasteurizer III-XII nml as tested, motor strength/tone normal, speech normal Psychiatric: normal inspection, judgement/insight normal, mood/affect normal Skin: normal inspection, normal color, no rash Medical Decision Making Diagnostic Impression: Primary Impression: Dyspnea Qualified Codes: R06.00 - Dyspnea, unspecified Additional Impressions: JESSICA (acute kidney injury) Cocaine abuse Marijuana abuse ER Course Dyspnea - VSS. Not hypoxic. - Ambulating in ED without distress - CXR no lobar PNA. Mild CHF. - BNP trended down compared to previous values during admission for CHF - ECG no ischemia. No change from previous. LVH. - Troponin 0 - Utox + for marijuana, cocaine - Patient given her 2 BP meds as well as SL nitro X1 for dyspnea in setting of uncontrolled HTN with improvement in BP - Received ASA in ED - Labs also significant for mild JESSICA - Was not given Lasix as O2 sat 100% on RA, no acute CHF on exam or on imaging. Endorsed to Dr Walton.at 530am for tele admission for ACS rule out and JESSICA. EKG Diagnostic Results Rate: normal Rhythm: NSR ST Segments: no acute changes ASA given to the pt in ED: No Rhythm Strip Diag. Results EP Interpretation: yes Rate: 92 Rhythm: NSR, no PVC's, no ectopy Chest X-Ray Diagnostic Results # of Views/Limited/Complete: 1 View Interpretation: no consolidation, other - Cardiomegaly Indication: Shortness of Breath Date Electronically Signed: Oct 23, 2016 Time Electronically Signed: 02:56 Interpreting ER Physician: Joan Last Vital Signs Date Time Temp Pulse Resp B/P Pulse Ox O2 Delivery O2 Flow Rate FiO2 10/23/16 02:48 97.9 79 27 167/113 97 Nasal Cannula 2.0 Status: improved Disposition: ADMITTED INPATIENT Condition: Serious Referrals: [facility],REFERRING (PCP) LISA HOGUE M.D. Oct 23, 2016 02:56
[2016-10-23] MEDS ORDERED: Lisinopril 10mg tab ORAL ONE (03:00)
[2016-10-23] MEDS ORDERED: Carvedilol 12.5mg tab ORAL ONE (03:00)
[2016-10-23 03:09] LABS: ALANINE AMINOTRANSFERASE 13 U/L (3-33); ALBUMIN/GLOBULIN RATIO 1.2 (1.0-2.7); ANION GAP 10 (5-15); ASPARTATE AMINO TRANSFERASE 19 U/L (5-40); CALCIUM 9.5 mg/dL (8.6-10.2); CARBON DIOXIDE 35 mEQ/L (20-30); CHLORIDE 98 mEQ/L (98-107); GLOMERULAR FILTRATION RATE > 60 mL/min (>60); HEMOLYSIS 15; POTASSIUM 4.2 mEQ/L (3.4-4.9); SODIUM 143 mEQ/L (135-145); TOTAL PROTEIN 7.5 g/dL (6.6-8.7)
[2016-10-23 03:18] LABS: TROPONIN I < 0.30 ng/mL (<=0.30)
[2016-10-23] MEDS: Nitroglycerin Subl 0.4mg tab (Bottle Of 25) SL PRN ×2 (03:21→06:19)
[2016-10-23 03:28] LABS: CKMB 2.5 ng/mL (< 3.8)
[2016-10-23] MEDS ORDERED: Aspirin Baby 81mg ORAL ONE (04:45)
[2016-10-23] MEDS ORDERED: ACETAMINOPHEN325 M1 ORAL (06:52)
[2016-10-23] MEDS ORDERED: Furosemide 40mg tab ORAL SCH (09:00)
[2016-10-23] MEDS ORDERED: Lisinopril 10mg tab ORAL SCH (09:00)
--- NOTE | 2016-10-23 09:16 | Diagnostic Imaging Report ---
Indications: Shortness of breath Technique: Portable AP chest Findings: Comparison: 07/18/2016 Cardiac silhouette remains enlarged. Pulmonary vascular redistribution, bilateral interstitial prominence are present, increased from previous exam. Left costophrenic angle suboptimally demonstrated; no obvious right pleural abnormalities. IMPRESSION: Bilateral congestive changes, increased from previous exam
[2016-10-23] MEDS ORDERED: Norco 5mg/325mg tab ORAL PRN (10:30)
--- NOTE | 2016-10-23 17:00 | History and Physical Report ---
DATE OF ADMISSION: 10/23/2016 HISTORY OF PRESENT ILLNESS: This is a 51-year-old female with a history of cardiomyopathy. The patient had a history of previous cocaine use. She has a history of dilated cardiomyopathy, alcohol abuse, and tobacco use. Apparently, her last echo was 10%. She came to the hospital with shortness of breath. The patient states she has not been taking medicine for the last 24 hours. She was seen in the hospital and admitted to the emergency room. PAST MEDICAL HISTORY: As discussed above. I note that she was admitted to this hospital in July 2016 with a history of cardiomyopathy, hypertensive urgency, noncompliance with medications, anemia, obesity, cocaine, and tobacco abuse. Her urine tox at that time was positive for cocaine. HOME MEDICATIONS: Lipitor, Coreg, digoxin, Lasix, lisinopril, and Aldactone. CODE STATUS: Full. REVIEW OF SYSTEMS: Denies any headaches, hematemesis, melena, or hematochezia. PHYSICAL EXAMINATION: GENERAL: Reveals an obese female. HEENT: Unremarkable. CHEST: Clear breath sounds bilaterally. ABDOMEN: Soft. NEUROLOGIC: Nonfocal. LABORATORY DATA: Lab testing shows normal CBC and BMP. Creatinine is 1. ProBNP 1996. Troponin is negative. Toxicology is positive for cocaine and marijuana. IMPRESSION: Substance abuse, cocaine use, cardiomyopathy, hypertension, obesity, and chronic pain. DISCUSSION: We will admit her to the hospital for cardiac monitoring and serial troponins. We will discharge to contracted facility. Dylan Walton M.D. DR: RANI JOB#: [id number] CC:
[2016-10-23 17:22] LABS: TROPONIN I < 0.30 ng/mL (<=0.30)
--- NOTE | 2016-10-24 10:32 | Discharge Summary ---
Discharge Summary Hospital Course Date of Admission Oct 23, 2016 at 03:50 Date of Discharge Oct 23, 2016 at 20:21 Admitting Diagnosis ACS, CHF HPI Krystina Mckenzie is a 51 year old female who was admitted on Oct 23, 2016 at 03: 50 for Acute Coronary Syndrome, Congestive Heart Failure Hospital Course [id number] Discharge Discharge Disposition Patient was discharged to Acute Care Facility(02) Discharge Diagnoses: Sheyla Wilkins NP Oct 24, 2016 10:31
--- NOTE | 2016-10-24 21:45 | Discharge Summary 2 SIG ---
DATE OF ADMISSION: 10/23/2016 DATE OF DISCHARGE: 10/23/2016 BRIEF HOSPITAL COURSE: The patient is a 51-year-old female with cardiomyopathy and history of previous cocaine use. She has history of dilated cardiomyopathy, alcohol abuse, and tobacco use. Apparently, last echo had ejection fraction of 10%. She presented to the hospital complaining of shortness of breath and has not been taking her medications for the last 24 hours. On evaluation at ED, chest x-ray showed mild congestive heart failure. Blood pressure was elevated. She was given antihypertensives as well as sublingual nitroglycerin. She was given aspirin. Laboratories was significant for mild acute kidney injury. Urine toxicology positive for marijuana and cocaine. The patient was admitted to telemetry and was eventually discharged to a contracted facility. FINAL DIAGNOSES: 1. Substance abuse with cocaine use. 2. Cardiomyopathy. 3. Hypertension. 4. Obesity. 5. Chronic pain. Dylan Walton M.D. I have been assigned to dictate discharge summary on this account and I was not involved in the patient's management. Sheyla Wilkins N.P. DR: SATISH JOB#: [id number] CC:
== END 2016-10-23 20:21 | disposition short-term general hospital (02) | DRG 194 ==
LOC: EDBD 01:58 → EMR 02:26 → 2E 03:50 → EDBEDREQ 04:30
DX: I50.9 Heart failure, unspecified (principal); N17.9 Acute kidney failure, unspecified; I42.0 Dilated cardiomyopathy; F14.10 Cocaine abuse, uncomplicated; E66.9 Obesity, unspecified; G89.29 Other chronic pain; Z91.14 Patient's other noncompliance with medication regimen; I10 Essential (primary) hypertension
CPT/HCPCS: 36415; 71010; 80053; 80300; 82550; 82553; 83880; 84484; 85025; 93005

== ENCOUNTER 2016-11-15 04:00 | Emergency (ER) | payer MEDICAID, OTHER ==
[~2016-11-15] VITALS: Ht 170.2 cm; Wt 81.6 kg
[2016-11-15] VITALS (8 sets, daily range): BP systolic 141–161; BP diastolic 94–114
[~2016-11-15 04:00] MED LIST changes: +ACETAMINOPHEN325 M1 ORAL; +FUROSEMIDE20 M1 ORAL
[2016-11-15] MEDS ORDERED: Nitroglycerin Subl 0.4mg tab (Bottle Of 25) SL PRN (04:15)
[2016-11-15] MEDS ORDERED: Aspirin Baby 81mg ORAL ONE (04:15)
--- NOTE | 2016-11-15 04:23 | Emergency Room Report ---
History of Present Illness General Chief Complaint: Dyspnea/Respdistress Source: Patient, Medical Record, EMS Present Illness HPI Is a 51-year-old female with a history of hypertension and CHF. She is us a history of cardiomyopathy with ejection fraction of 10%. She does not have an AICD. She is a smoker and also uses marijuana. She claimed that she does not use cocaine but twice now she is positive for cocaine on her drug screen. She claimed that he was in the marijuana to smoke. She presents with chief complaint shortness of breath and chest pain and pressure for the last day. Not taking her medication because she said the hospital lost them.. No fever or chills. No nausea no vomiting. Worse with exertion. EMS said that she was wheezing so they gave her a breathing treatment. No radiation of her pain. Allergies: Coded Allergies: No Known Allergies (Unverified , 07/10/16) Patient History Past Medical History: see triage record, old chart reviewed, HTN, CHF Past Surgical History: other Pertinent Family History: none Social History: Reports: drug use, smoking Last Menstrual Period: NONE Now: No Immunizations: other Reviewed Nursing Documentation: PMH: Agreed, PSxH: Agreed Nursing Documentation-PMH Hx Hypertension: Yes Hx COPD: Yes Hx Diabetes: No Hx Cancer: No Hx Gastrointestinal Problems: No Hx Neurological Problems: No Hx Cerebrovascular Accident: Yes Review of Systems Eye: Denies: blurred vision, eye pain ENT: Denies: ear pain, nose congestion, throat swelling Respiratory: Reports: shortness of breath, Denies: cough Cardiovascular: Reports: chest pain, Denies: palpitations Gastrointestinal: Denies: abdominal pain, diarrhea, nausea, vomiting Musculoskeletal: Denies: back pain, joint pain Skin: Denies: rash Neurological: Denies: headache, numbness Endocrine: Denies: increased thirst, increased urine Hematologic/Lymphatic: Denies: easy bruising All Other Systems: negative except mentioned in HPI Physical Exam Vital Signs Date Time Temp Pulse Resp B/P Pulse Ox O2 Delivery O2 Flow Rate FiO2 11/15/16 03:51 97.9 86 18 162/113 96 Room Air vitals with hypertension Sp02 EP Interpretation: reviewed, normal General Appearance: well appearing, no apparent distress, alert Head: normocephalic, atraumatic Eyes: bilateral eye EOMI, bilateral eye PERRL ENT: hearing grossly normal, normal pharynx Neck: full range of motion, supple, no meningismus Respiratory: chest non-tender, lungs clear, normal breath sounds Cardiovascular #1: regular rate, rhythm, no murmur Gastrointestinal: normal bowel sounds, non tender, no mass, no organomegaly, no bruit, non-distended Musculoskeletal: back normal, normal range of motion, swelling - Trace edema Neurologic: alert, oriented x3 Psychiatric: mood/affect normal Skin: warm/dry Medical Decision Making Diagnostic Impression: Primary Impression: Acute exacerbation of CHF (congestive heart failure) Qualified Codes: I50.9 - Heart failure, unspecified Additional Impressions: Hypertension Qualified Codes: I10 - Essential (primary) hypertension Noncompliance Cocaine abuse Cardiomyopathy Qualified Codes: I42.9 - Cardiomyopathy, unspecified ER Course Patient with CHF exacerbation. This is secondary to noncompliance and possibly drug abuse. Her ejection fraction is only 10-15% at the most. She would benefit from an AICD. Advised patient to abstain from drugs. Will admit for further workup. Patient diuresed after Lasix, nitroglycerin and Vasotec. She' s feeling better. Patient was given be transferred to [place]. Patient said that she doesn't want to go [place]. She said she felt much better now. She diuresed almost 2 L. Said she wants to go home. Patient is competent to make that decision. I will refill on her medication. Lab Results Impression labs with elevated BNP EKG Diagnostic Results EKG Time: 04:23 Rate: normal Rhythm: NSR ST Segments: no acute changes Rhythm Strip Diag. Results Rhythm Strip Time: 04:23 Rate: 65 Rhythm: NSR, no PVC's, no ectopy Chest X-Ray Diagnostic Results Chest X-Ray Diagnostic Results : Chest X-Ray Ordered: Yes # of Views/Limited/Complete: 1 View Indication: Shortness of Breath EP Interpretation: Yes Interpretation: no consolidation, no effusion, no pneumothorax, other - Cardiomegaly with vascular congestion Impression: Other - Cardiomegaly, CHF Interpreting ER Provider: Electronically signed by Juancho Cruz MD Last Vital Signs Date Time Temp Pulse Resp B/P Pulse Ox O2 Delivery O2 Flow Rate FiO2 11/15/16 03:51 97.9 86 18 162/113 96 Room Air Status: improved Disposition: AGAINST MEDICAL ADVICE Condition: Stable Scripts Losartan Potassium* (LOSARTAN POTASSIUM*) 50 Mg Tablet 50 MG ORAL DAILY, #30 TAB Prov: JUANCHO CRUZ M.D. 11/15/16 Amlodipine Besylate (Norvasc) 5 Mg Tablet 5 MG ORAL DAILY, #30 TAB Prov: JUANCHO CRUZ M.D. 11/15/16 Carvedilol* (CARVEDILOL*) 3.125 Mg Tablet 3.125 MG ORAL EVERY 12 HOURS, #60 TAB Prov: JUANCHO CRUZ M.D. 11/15/16 Furosemide* (LASIX*) 20 Mg Tablet 20 MG ORAL DAILY, #30 TAB Prov: JUANCHO CRUZ M.D. 11/15/16 Additional Instructions: You are leaving AGAINST MEDICAL ADVICE. If you change your mind, return. Abstain from smoking or drugs. Followup with your DrEneida in 2-3 days for recheck. You may benefit from referral to see her insurance agents supervisor. You may be an AICD for your weak heart. JUANCHO CRUZ M.D. Nov 15, 2016 04:23
[2016-11-15 06:07] LABS: APPEARANCE,URINE CLEAR; KETONES,URINE NEGATIVE (NEGATIVE); LEUKOCYTE ESTERASE ,URINE NEGATIVE (NEGATIVE); NITRITE,URINE NEGATIVE (NEGATIVE); PH,URINE 7 (4.5-8.0); PROTEIN,URINE NEGATIVE (NEGATIVE); UROBILINOGEN,URINE NORMAL MG/DL (0.0-1.0)
[2016-11-15] MEDS ORDERED: Enalaprilat 2.5mg/2ml Inj IV ONE (06:15)
[2016-11-15 06:16] LABS: BASOPHILS % (AUTO) 1.8 % (0.0-2.0); EOSINOPHILS % (AUTO) 3.2 % (0.0-3.0); LYMPHOCYTES % (AUTO) 40.4 % (20.0-45.0); MEAN CORPUSCULAR HEMOGLOBIN 25.9 PG (27.0-31.0); MEAN CORPUSCULAR HGB CONC 28.7 G/DL (32.0-36.0); MEAN CORPUSCULAR VOLUME 90 FL (80-99); MEAN PLATELET VOLUME 7.2 FL (6.5-10.1); MONOCYTES % (AUTO) 9.1 % (1.0-10.0); NEUTROPHILS % (AUTO) 45.6 % (45.0-75.0); PLATELET COUNT 296 K/UL (150-450); RED BLOOD COUNT 4.44 M/UL (4.20-5.40); RED CELL DISTRIBUTION WIDTH 17.7 % (11.6-14.8); WHITE BLOOD COUNT 5.3 K/UL (4.8-10.8)
[2016-11-15 06:38] LABS: ALANINE AMINOTRANSFERASE 12 U/L (3-33); ALBUMIN/GLOBULIN RATIO 1.2 (1.0-2.7); ANION GAP 9 (5-15); ASPARTATE AMINO TRANSFERASE 18 U/L (5-40); CALCIUM 8.8 mg/dL (8.6-10.2); CARBON DIOXIDE 31 mEQ/L (20-30); CHLORIDE 103 mEQ/L (98-107); CREATININE 0.8 mg/dL (0.5-0.9); GLOMERULAR FILTRATION RATE > 60 mL/min (>60); HEMOLYSIS 1; POTASSIUM 3.7 mEQ/L (3.4-4.9); SODIUM 143 mEQ/L (135-145); TOTAL PROTEIN 6.7 g/dL (6.6-8.7)
[2016-11-15 06:42] LABS: TROPONIN I < 0.30 ng/mL (<=0.30)
[2016-11-15 06:50] LABS: CKMB 2.3 ng/mL (< 3.8)
[2016-11-15] MEDS ORDERED: LOSARTAN POTASS50 MG ORAL (07:09)
[2016-11-15] MEDS ORDERED: NORVASC5 MG ORAL (07:09)
[2016-11-15] MEDS ORDERED: LASIX20 M1 ORAL (07:09)
[2016-11-15] MEDS ORDERED: CARVEDILOL3.125 MG ORAL (07:09)
--- NOTE | 2016-11-15 08:36 | Diagnostic Imaging Report ---
Indications: Shortness of breath Technique: AP chest Findings: Comparison: 10/23/16 Cardiomegaly, pulmonary vascular redistribution, bilateral interstitial infiltrates persist. Allowing for differences in technique, findings appear mildly more severe. No pleural abnormality demonstrated. IMPRESSION: Increase in bilateral congestive changes
[2016-11-15] MEDS ORDERED: Morphine Sulfate 4mg/ml Inj IVP ONE (10:15)
== END 2016-11-15 10:30 | disposition left against medical advice (07) ==
LOC: EDBD 04:00 → EDBEDREQ 06:02 → EMR 06:27
DX: I50.9 Heart failure, unspecified (principal); I10 Essential (primary) hypertension; F14.10 Cocaine abuse, uncomplicated; Z91.14 Patient's other noncompliance with medication regimen; J44.9 Chronic obstructive pulmonary disease, unspecified; Z86.73 Personal history of transient ischemic attack (TIA), and cerebral infarction without residual deficits
CPT/HCPCS: 36415; 71010; 80053; 80300; 81003; 82550; 82553; 83880; 84484; 85025; 93005; 96374; 96375; 99284; J1940; J2270

== ENCOUNTER 2017-02-10 07:17 | Inpatient (IN) | payer MEDICAID ==
[~2017-02-10] VITALS: Ht 170.2 cm; Wt 109.8 kg
[2017-02-10] VITALS (7 sets, daily range): BP systolic 135–162; BP diastolic 81–106
[~2017-02-10 07:17] MED LIST changes: +DIGOXIN250 MCG ORAL; +LASIX20 M1 ORAL; +LOSARTAN POTASS50 MG ORAL; +NORVASC5 MG ORAL
[2017-02-10] MEDS: Ipratropium 0.02% Inh Soln 2.5ml UD HHN SCH ×6 (07:27→09:37)
[2017-02-10] MEDS: Albuterol ud Inhalation HHN SCH ×6 (07:27→09:37)
[2017-02-10] MEDS ORDERED: Solu-MEDROL 125mg Inj IVP ONE (07:30)
--- NOTE | 2017-02-10 07:36 | Emergency Room Report ---
History of Present Illness General Chief Complaint: Dyspnea/Respdistress Source: Patient Present Illness HPI 52-year-old female presents to ED for shortness of breath. Per EMS patient complaining of shortness of breath starting around 3 AM. Patient was profusely wheezing and started on breathing treatments. Patient states she feels somewhat better. Patient notes history of CHF. Is not on home oxygen. I asked patient she has history of asthma and she says no but "I need an inhaler" . Denies cough. Denies fevers or chills. Denies chest pain. No other aggravating or relieving factors. Denies any other associated symptoms Allergies: Coded Allergies: No Known Allergies (Unverified , 07/10/16) Patient History Past Medical History: HTN, AFib, COPD, CVA/TIA Past Surgical History: none Pertinent Family History: none Social History: Denies: smoking, alcohol use, drug use Now: No Immunizations: UTD Reviewed Nursing Documentation: PMH: Agreed, PSxH: Agreed Nursing Documentation-PMH Hx Cardiac Problems: Yes - Atrial fibrillation Hx Hypertension: Yes Hx COPD: Yes Hx Diabetes: No Hx Cancer: No Hx Gastrointestinal Problems: Yes Hx Neurological Problems: Yes Hx Cerebrovascular Accident: Yes Review of Systems All Other Systems: negative except mentioned in HPI Physical Exam Vital Signs Date Time Temp Pulse Resp B/P (MAP) Pulse Ox O2 Delivery O2 Flow Rate FiO2 02/10/17 07:12 97.9 86 18 160/90 98 Non-Rebreather Sp02 EP Interpretation: reviewed, normal General Appearance: no apparent distress, alert, GCS 15, non-toxic Head: normocephalic, atraumatic Eyes: bilateral eye normal inspection, bilateral eye PERRL ENT: hearing grossly normal, normal pharynx, no angioedema, normal voice Neck: full range of motion, supple/symm/no masses Respiratory: chest non-tender, speaking full sentences, wheezing Cardiovascular #1: regular rate, rhythm, no edema Cardiovascular #2: 2+ carotid (R), 2+ carotid (L), 2+ radial (R), 2+ radial (L) , 2+ dorsalis pedis (R), 2+ dorsalis pedis (L) Gastrointestinal: normal bowel sounds, non tender, soft, non-distended, no guarding, no rebound Rectal: deferred Genitourinary: normal inspection, no CVA tenderness Musculoskeletal: back normal, gait/station normal, normal range of motion, non- tender Neurologic: alert, oriented x3, responsive, motor strength/tone normal, sensory intact, speech normal Psychiatric: judgement/insight normal, memory normal, mood/affect normal, no suicidal/homicidal ideation Reflexes: 3+ bicep (R), 3+ bicep (L), 3+ tricep (R), 3+ tricep (L), 3+ knee (R) , 3+ knee (L) Skin: normal color, no rash, warm/dry, well hydrated Lymphatic: no adenopathy Procedures Critical Care Time Critical Care Time i. I feel this is a highly complex case requiring extensive working including EKG/Rhythm strip, Xray/CT/US, Blood/urine lab work, repeat exams while in ED, and administration of strong opiates/narcotics for pain control, admission to hospital or close patient follow up. Total time: 30 min bedside evaluation and treatment excludes procedures (EKG). Reason for critical care: hypercapnia, hypoxia, lethargic Possible complications: hypotension, hypertension, ID, shock, arrhythmias, metabolic acidosis, end organ damage, respiratory failure. Interventions: Labs, IV fluids, EKG, chest x-ray, nebulizer treatment, Solu- Medrol, Lasix, ABG, BiPAP, Narcan Course: Patient brought in with shortness of breath. History of CHF. Diffuse wheezing. Given breathing treatments. Became more altered. ABG shows hypercapnia. Started on BiPAP. Patient tox positive for cocaine. Given Narcan and now more awake. Given Lasix. Given antibiotics Consultations: nursing staff, EMS, family Performed by: Dr Miramontes Tolerated well condition = serious j. because of unstable vital signs this patient had a condition that could potentially threaten life or limb. I feel this is a critical patient who required my full attention while patient was considered critical. Total Critical Care Time excluding procedures was greater than 35 minutes Medical Decision Making Diagnostic Impression: Primary Impression: CHF (congestive heart failure) Qualified Codes: I50.9 - Heart failure, unspecified Additional Impressions: Hypercapnia Cocaine abuse ER Course Hospital Course 52-year-old female presents ED complaining of shortness of breath Differential diagnoses include: ID/unstable angina, contusion, muscle strain, PTX, rib fracture Clinical course Patient placed on stretcher. 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 After initial history and physical I ordered labs, EKG, chest x-ray, nebulizer treatments labs reviewed- no leukocytosis, hemoglobin/hematocrit stable, creatinine elevated, troponins negative, BNP elevated EKG - NSR, no acute ischemic changes intperreted by me Chest x-ray- cardiomegaly, pulmonary congestion Patient appears more lethargic than when she came in. ABG shows hypercapnia. U. tox positive for cocaine. Given Narcan. Started on BiPAP. Patient became more alert. Given magnesium, Solu-Medrol, antibiotics. Given Lasix. Case discussed with Dr. Walton and he agreed to accept the patient to his service for further care and support I. I feel this is a highly complex case requiring extensive working including EKG/Rhythm strip, Xray/CT/US, Blood/urine lab work, repeat exams while in ED, and administration of strong opiates/narcotics for pain control, admission to hospital or close patient follow up. Diagnosis - CHF exacerbation, hypercapnia, cocaine abuse admitted to [facility] in serious condition Labs Test 02/10/17 08:20 02/10/17 08:30 Urine Color Yellow Urine Appearance Clear Urine pH 6.5 (4.5-8.0) Urine Specific Gans 1.015 (1.005-1.035) Urine Protein 2+ (NEGATIVE) Urine Glucose (UA) Negative (NEGATIVE) Urine Ketones Negative (NEGATIVE) Urine Occult Blood 2+ (NEGATIVE) Urine Nitrite Negative (NEGATIVE) Urine Bilirubin Negative (NEGATIVE) Urine Urobilinogen 4 MG/DL (0.0-1.0) Urine Leukocyte Esterase 1+ (NEGATIVE) Urine RBC 2-4 /HPF (0 - 2) Urine WBC 2-4 /HPF (0 - 2) Urine Squamous Epithelial Cells Few /LPF (NONE/OCC) Urine Bacteria Few /HPF (NONE) Urine Opiates Screen Negative (NEGATIVE) Urine Barbiturates Screen Negative (NEGATIVE) Phencyclidine (PCP) Screen Negative (NEGATIVE) Urine Amphetamines Screen Negative (NEGATIVE) Urine Benzodiazepines Screen Negative (NEGATIVE) Urine Cocaine Screen Positive (NEGATIVE) Urine Marijuana (THC) Screen Negative (NEGATIVE) White Blood Count 5.1 K/UL (4.8-10.8) Red Blood Count 5.32 M/UL (4.20-5.40) Hemoglobin 14.0 G/DL (12.0-16.0) Hematocrit 47.2 % (37.0-47.0) Mean Corpuscular Volume 89 FL (80-99) Mean Corpuscular Hemoglobin 26.4 PG (27.0-31.0) Mean Corpuscular Hemoglobin Concent 29.7 G/DL (32.0-36.0) Red Cell Distribution Width 17.0 % (11.6-14.8) Platelet Count 141 K/UL (150-450) Mean Platelet Volume 9.1 FL (6.5-10.1) Neutrophils (%) (Auto) 41.8 % (45.0-75.0) Lymphocytes (%) (Auto) 41.5 % (20.0-45.0) Monocytes (%) (Auto) 14.3 % (1.0-10.0) Eosinophils (%) (Auto) 1.6 % (0.0-3.0) Basophils (%) (Auto) 0.9 % (0.0-2.0) Sodium Level 145 mEQ/L (135-145) Potassium Level 3.7 mEQ/L (3.4-4.9) Chloride Level 103 mEQ/L (98-107) Carbon Dioxide Level 36 mEQ/L (20-30) Anion Gap 6 (5-15) Blood Urea Nitrogen 19 mg/dL (7-23) Creatinine 0.6 mg/dL (0.5-0.9) Estimat Glomerular Filtration Rate > 60 mL/min (>60) Glucose Level 105 mg/dL (74-106) Lactic Acid Level 0.80 mmol/L (0.66-2.22) Calcium Level 8.9 mg/dL (8.6-10.2) Total Bilirubin 1.0 mg/dL (0.0-1.2) Aspartate Amino Transf (AST/SGOT) 17 U/L (5-40) Alanine Aminotransferase (ALT/SGPT) 13 U/L (3-33) Alkaline Phosphatase 65 U/L (35-104) Total Creatine Kinase 71 U/L (26-140) Creatine Kinase MB 2.7 ng/mL (< 3.8) Creatine Kinase MB Relative Index 3.8 Troponin I < 0.30 ng/mL (<=0.30) Pro-B-Type Natriuretic Peptide 2766 pg/mL (0-125) Total Protein 7.2 g/dL (6.6-8.7) Albumin 4.2 g/dL (3.5-5.2) Globulin 3.0 g/dL Albumin/Globulin Ratio 1.4 (1.0-2.7) EKG Diagnostic Results Rate: normal Rhythm: NSR ST Segments: other - twave inversions in lateral leads Rhythm Strip Diag. Results EP Interpretation: yes Rhythm: NSR, no PVC's, no ectopy Chest X-Ray Diagnostic Results Chest X-Ray Diagnostic Results : Chest X-Ray Ordered: Yes # of Views/Limited/Complete: 1 View Indication: Shortness of Breath EP Interpretation: Yes Interpretation: no pneumothorax, no acute cardiopulmonary disease, other - pulmonary congestion. cardiomegaly Impression: Other - chf Electronically Signed by: Electronically signed by Taqueria Miramontes MD Last Vital Signs Date Time Temp Pulse Resp B/P (MAP) Pulse Ox O2 Delivery O2 Flow Rate FiO2 02/10/17 07:12 97.9 86 18 160/90 98 Non-Rebreather Status: improved Disposition: ADMITTED INPATIENT Condition: Serious TAQUERIA MIRAMONTES M.D. Feb 10, 2017 07:36
[2017-02-10 08:35] LABS: APPEARANCE,URINE CLEAR; KETONES,URINE NEGATIVE (NEGATIVE); LEUKOCYTE ESTERASE ,URINE 1+ (NEGATIVE); NITRITE,URINE NEGATIVE (NEGATIVE); PH,URINE 6.5 (4.5-8.0); PROTEIN,URINE 2+ (NEGATIVE); UROBILINOGEN,URINE 4 MG/DL (0.0-1.0)
[2017-02-10 08:48] LABS: BACTERIA,URINE FEW /HPF; SQUAMOUS EPITHELIAL CELL,UR FEW /LPF (NONE/OCC)
[2017-02-10 09:06] LABS: BASOPHILS % (AUTO) 0.9 % (0.0-2.0); EOSINOPHILS % (AUTO) 1.6 % (0.0-3.0); LYMPHOCYTES % (AUTO) 41.5 % (20.0-45.0); MEAN CORPUSCULAR HEMOGLOBIN 26.4 PG (27.0-31.0); MEAN CORPUSCULAR HGB CONC 29.7 G/DL (32.0-36.0); MEAN CORPUSCULAR VOLUME 89 FL (80-99); MEAN PLATELET VOLUME 9.1 FL (6.5-10.1); MONOCYTES % (AUTO) 14.3 % (1.0-10.0); NEUTROPHILS % (AUTO) 41.8 % (45.0-75.0); PLATELET COUNT 141 K/UL (150-450); RED BLOOD COUNT 5.32 M/UL (4.20-5.40); WHITE BLOOD COUNT 5.1 K/UL (4.8-10.8)
[2017-02-10] MEDS ORDERED: FUROSEMIDE20 M1 ORAL (09:24)
[2017-02-10 09:37] LABS: TROPONIN I < 0.30 ng/mL (<=0.30)
[2017-02-10 09:38] LABS: ALANINE AMINOTRANSFERASE 13 U/L (3-33); ALBUMIN/GLOBULIN RATIO 1.4 (1.0-2.7); ANION GAP 6 (5-15); ASPARTATE AMINO TRANSFERASE 17 U/L (5-40); CALCIUM 8.9 mg/dL (8.6-10.2); CARBON DIOXIDE 36 mEQ/L (20-30); CHLORIDE 103 mEQ/L (98-107); CREATININE 0.6 mg/dL (0.5-0.9); GLOMERULAR FILTRATION RATE > 60 mL/min (>60); HEMOLYSIS 0; POTASSIUM 3.7 mEQ/L (3.4-4.9); SODIUM 145 mEQ/L (135-145); TOTAL PROTEIN 7.2 g/dL (6.6-8.7)
[2017-02-10 09:48] LABS: CKMB 2.7 ng/mL (< 3.8)
[2017-02-10] MEDS ORDERED: Naloxone 1mg/ml 2ml IVP ONE (10:30)
--- NOTE | 2017-02-10 11:19 | Diagnostic Imaging Report ---
Indication: Dyspnea Comparison: December 10, 2016 A single view chest radiograph was obtained. Findings: Pulmonary edema is present with cardiomegaly, prominent vascularity and interstitial edema. The bones are slight osteopenic. Impression: Interstitial edema/CHF
--- NOTE | 2017-02-10 13:06 | History & Physical ---
History and Physical History & Physicial Patient: PAOLA WAGNER [facility] Rec #: [id number] Patient No.: [id number] Date of Service: 02/10/17 DATE OF ADMISSION: 02/10/2017 HISTORY OF PRESENT ILLNESS: This is a 52-year-old female, came to the hospital with shortness of breath. She was seen, worked up in the emergency room, and admitted to the hospital. The patient has a longstanding history of CHF. In the past she has been found to cocaine in the urine as well. This was checked again today and there is cocaine in the urine. There is no nausea, vomiting, or diarrhea. No gastrointestinal systems. She also has been complaining of mild left precordial chest pain. She is noted to be hypoxic in the emergency room as well and being to be not transferable. She was placed on BiPAP PAST MEDICAL HISTORY: Hypertension, atrial fibrillation, and COPD. She also has history of gallbladder issues. PREVIOUS SURGICAL HISTORY: None reported. MEDICATIONS: Medications at home include Lasix 20 mg daily, Norvasc, Coreg, and Losartan. ALLERGIES: None reported. REVIEW OF SYSTEMS: Denies any headaches, hematemesis, melena, hematochezia, night sweats or weight loss. PHYSICAL EXAMINATION: GENERAL: Reveals 52-year-old female. VITAL SIGNS: Heart rate 110, respirations 22, and O2 saturation 96% on 2 L of oxygen. HEENT: Unremarkable. LUNGS: Clear bilaterally with decreased breath sounds at both lung bases. ABDOMEN: Soft. EXTREMITIES: There is no edema. NEUROLOGIC: Nonfocal. LABORATORY AND DIAGNOSTIC DATA: X-ray of chest obtained has shown congestive heart failure. BNP is elevated IMPRESSION: 1. Pulmonary edema. 2. Decompensated congestive heart failure, systolic. 3. Atrial fibrillation. 4. Hypertension. 5. Substance abuse. DISCUSSION: The patient is doing better at this point in time. My goal is to optimize her treatment and arrange for appropriate outpatient follow up and discharge, likely the next 24 hours. Discussed with the patient in great detail. Continue BiPAP Diurese Cardiac eval Gurwinder Nielsen Omar Syed MD Feb 10, 2017 13:06
[2017-02-10 15:12] LABS: TROPONIN I < 0.30 ng/mL (<=0.30)
[2017-02-10] MEDS: Norco 5mg/325mg tab ORAL PRN (17:45)
[2017-02-10] MEDS ORDERED: Guaifenesin/DM 10ml syrup ORAL PRN (21:15)
[2017-02-10 23:23] LABS: TROPONIN I < 0.30 ng/mL (<=0.30)
[2017-02-11] MEDS: guaiFENesin DM 100mg/5ml ORAL PRN ×2 (00:07→06:12)
--- NOTE | 2017-02-11 01:45 | Consultation ---
DATE OF CONSULTATION: 02/10/2017 CARDIOLOGY CONSULTATION REQUESTING PHYSICIAN: Dylan Walton M.D. REASON FOR CONSULTATION: Congestive heart failure. History Of Present Illness: This 52-year-old female who has a longstanding history of cocaine induced and hypertensive cardiomyopathy. She was hospitalized here two months ago with shortness of breath and had a positive cocaine screen. She returned to the emergency room this morning with shortness of breath that woke her from sleep at 3 in the morning. She was wheezing and congested and swollen in her legs. In the emergency room, she was started on intravenous diuretics and inhaled bronchodilators. Her urine toxicology screen was positive again for cocaine metabolites. I have been asked to assist with further cardiovascular care. PAST MEDICAL HISTORY: 1. Microvascular angina. 2. Paroxysmal atrial fibrillation. 3. COPD. 4. Hypertension with hypertensive heart disease. 5. Cholelithiasis. ALLERGIES: None. Social History: Notable for cocaine abuse. She denies smoking, but does note moderate alcohol use, although she does not describe herself as an alcoholic. FAMILY HISTORY: Noncontributory. Review Of Systems: No fevers. No loss of vision. No history of diabetes or thyroid disorder. No history of seizure or stroke. She does have COPD. She has had prior admissions for sequelae of cocaine use. There is no history of kidney failure. She has had atrial fibrillation, but there is no history of sudden cardiac upon review of prior hospital records here at [facility]. An echocardiogram done in the last six months revealed severe global hypokinesis with ejection fraction of less than 20% as well as severe mitral regurgitation. PHYSICAL EXAMINATION: Vital Signs: Blood pressure 160/90, pulse 86, respirations 18, afebrile, obese. NECK: Jugular venous pressure grossly elevated. LUNGS: With bilateral rales. CHEST WALL: With no focal tenderness. Cardiac: Regular rhythm. Rapid rate. Normal S1, S2 with a fourth heart sound. ABDOMEN: Obese and soft. EXTREMITIES: With 2+ bilateral pretibial edema. Laboratory Data: Reviewed. White count 5 and hemoglobin 14. Potassium 3.7, BUN 19, and creatinine 0.6. Lactic acid 0.8. Pro-natriuretic peptide 2766. Troponin is negative. IMPRESSION: 1. [id number] systolic congestive heart failure. 2. Cocaine abuse. 3. Hypertensive heart disease. 4. Chronic obstructive pulmonary disease with exacerbation. PLAN: 1. Diuresis. 2. Maximize antifailure regimen to include angiotensin-converting enzyme inhibitors for afterload reduction. 3. Continue full anticoagulation. 4. Monitor electrolytes. 5. Inhale bronchodilators. 6. Avoid beta-blockers due to history of recurring cocaine use as well as underlying COPD. Pipe Post M.D. DR: Paula JOB#: [id number] CC:
[2017-02-11] MEDS: Norco 5mg/325mg tab ORAL PRN (01:53)
[2017-02-11 04:56] VITALS: BP 152/144
[2017-02-11 07:52] VITALS: BP 153/88
--- NOTE | 2017-02-11 08:21 | Pulmonology Progress Note ---
Assessment/Plan Assessment/Plan IMPRESSION: 1. Pulmonary edema. 2. Decompensated congestive heart failure, systolic. 3. Atrial fibrillation. 4. Hypertension. 5. Substance abuse. 6. COPD exacerbation DISCUSSION: The patient is doing better at this point in time. My goal is to optimize her treatment and arrange for appropriate outpatient follow up and discharge, likely the next 24 hours. Discussed with the patient in great detail. DC BiPAP Diurese Add steroids Robitussin Cardiac eval Subjective Interval Events: Feeling "panicky" this AM Constitutional: Reports: no symptoms HEENT: Repors: no symptoms Respiratory: Reports: productive cough, shortness of breath Cardiovascular: Reports: no symptoms Gastrointestinal/Abdominal: Reports: no symptoms Allergies: Coded Allergies: No Known Allergies (Unverified , 07/10/16) Objective Last 24 Hour Vital Signs Date Time Temp Pulse Resp B/P (MAP) Pulse Ox O2 Delivery O2 Flow Rate FiO2 02/11/17 07:52 98.1 64 20 153/88 94 Nasal Cannula 64 02/11/17 07:06 96 Nasal Cannula 2.0 28 02/11/17 07:06 Nasal Cannula 2.0 28 02/11/17 04:56 97.4 102 20 152/144 93 Nasal Cannula 64 02/11/17 04:00 94 02/11/17 04:00 3.0 02/11/17 00:00 3.0 02/11/17 00:00 60 02/10/17 23:58 97.4 62 18 160/104 93 Nasal Cannula 62 02/10/17 20:43 97.8 80 19 146/81 89 Nasal Cannula 80 02/10/17 20:00 3.0 02/10/17 20:00 71 02/10/17 19:21 97 Nasal Cannula 2.0 02/10/17 19:21 Nasal Cannula 2.0 02/10/17 17:40 85 135/85 02/10/17 16:21 96 02/10/17 16:15 3.0 02/10/17 16:13 96.3 85 18 135/85 93 Room Air 02/10/17 12:49 86 02/10/17 12:40 97.8 86 143/86 96 Nasal Cannula 3.0 02/10/17 12:18 97.9 81 24 161/93 100 Nasal Cannula 4.0 40 02/10/17 12:00 81 24 161/93 100 Nasal Cannula 4.0 02/10/17 11:00 Nasal Cannula 2.0 02/10/17 11:00 96 Nasal Cannula 2.0 02/10/17 10:00 80 28 150/105 100 Bi-pap 40 02/10/17 09:34 40 02/10/17 09:30 40 02/10/17 09:30 79 24 97 Facial 40 02/10/17 08:54 79 23 96 Nasal Cannula 2.0 02/10/17 08:53 74 31 100 Room Air 02/10/17 08:39 74 22 91 Nasal Cannula 2.0 General Appearance: no acute distress HEENT: normocephalic Respiratory/Chest: chest wall non-tender, decreased breath sounds, rhonchi Cardiovascular: normal peripheral pulses, normal rate Abdomen: normal bowel sounds, soft, non tender Extremities: no cyanosis Skin: no rash 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/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 Laboratory Tests 02/10/17 08:30: White Blood Count 5.1, Red Blood Count 5.32, Hemoglobin 14.0, Hematocrit 47.2H, Mean Corpuscular Volume 89, Mean Corpuscular Hemoglobin 26.4L, Mean Corpuscular Hemoglobin Concent 29.7L, Red Cell Distribution Width 17.0H, Platelet Count 141L , Mean Platelet Volume 9.1, Neutrophils (%) (Auto) 41.8L, Lymphocytes (%) (Auto ) 41.5, Monocytes (%) (Auto) 14.3H, Eosinophils (%) (Auto) 1.6, Basophils (%) ( Auto) 0.9, Sodium Level 145, Potassium Level 3.7, Chloride Level 103, Carbon Dioxide Level 36H, Anion Gap 6, Blood Urea Nitrogen 19, Creatinine 0.6, Estimat Glomerular Filtration Rate > 60, Glucose Level 105, Lactic Acid Level 0.80, Calcium Level 8.9, Total Bilirubin 1.0, Aspartate Amino Transf (AST/SGOT) 17, Alanine Aminotransferase (ALT/SGPT) 13, Alkaline Phosphatase 65, Total Creatine Kinase 71, Creatine Kinase MB 2.7, Creatine Kinase MB Relative Index 3.8, Troponin I < 0.30, Pro-B-Type Natriuretic Peptide 2766H, Total Protein 7.2, Albumin 4.2, Globulin 3.0, Albumin/Globulin Ratio 1.4 02/10/17 14:45: Troponin I < 0.30 02/10/17 22:35: Troponin I < 0.30 02/11/17 06:50: Troponin I [Pending] Current Medications Medications (Trade) Dose Ordered Sig/Fitz Route PRN Reason Start Time Stop Time Status Last Admin Dose Admin Acetaminophen (Tylenol) 650 mg Q6H PRN ORAL Mild Pain/Temp > 100.5 02/10/17 21:15 03/12/17 21:14 02/11/17 00:07 Acetaminophen/ Hydrocodone Bitart ([place] 5/325) 1 tab Q6H PRN ORAL For Pain 4-10 02/10/17 15:15 02/17/17 15:14 02/11/17 01:53 Amlodipine Besylate (Norvasc) 5 mg DAILY ORAL 02/11/17 09:00 03/13/17 08:59 Carvedilol (Coreg) 3.125 mg BID ORAL 02/10/17 18:00 03/12/17 17:59 02/10/17 17:40 Furosemide (Lasix) 40 mg BID IV 02/10/17 18:00 03/12/17 17:59 02/10/17 17:39 Guaifenesin/ Dextromethorphan (Robitussin DM) 5 ml Q6H PRN ORAL For Cough 02/10/17 23:00 03/12/17 21:14 02/11/17 06:12 Losartan Potassium (Cozaar) 100 mg DAILY ORAL 02/11/17 09:00 03/13/17 08:59 Potassium Chloride (K-Dur) 20 meq DAILY ORAL 02/11/17 09:00 03/13/17 08:59 Dylan Walton MD Feb 11, 2017 08:21
[2017-02-11 08:43] LABS: TROPONIN I < 0.30 ng/mL (<=0.30)
[2017-02-11] MEDS ORDERED: Losartan 50mg tab ORAL SCH ×2 (09:00)
[2017-02-11] MEDS ORDERED: guaiFENesin DM 100mg/5ml ORAL PRN (10:12)
[2017-02-11 12:00] VITALS: BP 146/109
[2017-02-11] MEDS ORDERED: Solu-MEDROL 40mg Inj IVP SCH (12:00)
--- NOTE | 2017-02-12 03:00 | Progress Note ---
DATE: 02/11/2017 CARDIOLOGY PROGRESS NOTE Subjective: The patient has less shortness of breath. No chest pain. The patient was made aware of her positive cocaine screen and she denies taking cocaine wilfully. The patient was made aware of the severity of her left ventricular systolic dysfunction and implications and risks of sudden cardiac with and without cocaine use. The patient was also made aware that there may be improvement in her cardiac function if she abstain from drugs in the future. Also, she was made aware that consideration for a defibrillator for prevention of sudden cardiac in the future could follow if she became more involved with her own good health care such as avoiding cocaine. OBJECTIVE: Vital Signs: Blood pressure 153/88, pulse 64, respirations 20, sinus rhythm. LUNGS: Few rhonchi. Scattered rales. Heart: Regular rhythm and rate. Normal S1 and S2 with a 1/6 apical murmur. ABDOMEN: Soft. EXTREMITIES: A 1 to 2+ edema. LABORATORY DATA: Labs reviewed. IMPRESSION: 1. Acute on chronic systolic congestive heart failure. 2. Cocaine abuse. 3. Paroxysmal atrial fibrillation. 4. Accelerated hypertension. PLAN: 1. Avoid beta-jc. 2. Maximize anti-failure regimen. 3. Continue diuresis. 4. Anti-platelet therapy. 5. Avoid substance abuse. 6. Long-term consideration for cardiac defibrillator for primary prevention. Pipe Post M.D. DR: BETITO JOB#: [id number] CC:
--- NOTE | 2017-02-12 14:09 | Discharge Summary ---
Discharge Summary Hospital Course Date of Admission Feb 10, 2017 at 09:20 Date of Discharge Feb 11, 2017 at 15:15 Admitting Diagnosis CONGESTIVE HEART FAILURE, SHORTNESS OF BREATH ROLF Krystina Mckenzie is a 52 year old female who was admitted on Feb 10, 2017 at 09: 20 for Congestive Heart Failure,Shortness Of Breath Hospital Course [id number] Discharge Discharge Disposition Patient was discharged to Home (01) Discharge Diagnoses: Sheyla Wilkins NP Feb 12, 2017 14:09
--- NOTE | 2017-02-13 03:15 | Discharge Summary 2 SIG ---
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 Brief Hospital Course: The patient is a 52-year-old female, who came to the hospital with shortness of breath. The patient has a history of congestive heart failure and per EMS the patient was profusely wheezing and was started on breathing treatments. On evaluation at ED, there was no leukocytosis. Troponin was negative. BNP was 2766. EKG done showed normal sinus rhythm with no acute ischemic changes. Chest x-ray showed cardiomegaly with pulmonary congestion. The patient appeared lethargic when she came in. ABG done showed hypercapnia. She was given Narcan and was started on BiPAP. She became more alert. Urine was positive for cocaine. She was started on Lasix and Solu-Medrol. She was noted to be hypoxic as well as not transferable. She was then admitted to [facility] and was continued on BiPAP. She was given KATHLEEN inhibitor. She was made aware of her positive cocaine screen and she denied taking cocaine. She was counseled and made aware of the severity of her left ventricular systolic dysfunction. Prior echocardiogram showed severe global hypokinesis with ejection fraction less than 20% as well as severe mitral regurgitation. She was made aware of the implications and risks of sudden cardiac with and without cocaine use and was made aware that there may be improvement in her cardiac function if she abstain from drugs in the future. Discussed consideration for a defibrillator for prevention of sudden cardiac in the future if she eventually avoids cocaine. Symptoms improved. Bipap discontinued. She was eventually discharged home. Advised follow up to optimize her treatment and needs appropriate followup in the next 24 hours. Above was discussed in great detail with the patient. FINAL DIAGNOSES: 1. Pulmonary edema. 2. Decompensated congestive heart failure, systolic. 3. Atrial fibrillation. 4. Hypertension. 5. Substance abuse. 6. Acute chronic obstructive pulmonary disease exacerbation. 7. Acute on chronic systolic congestive heart failure. 8. Accelerated hypertension. 9. Paroxysmal atrial fibrillation. DISPOSITION: The patient was discharged home. DISCHARGE MEDICATIONS: Refer list. FOLLOWUP: Follow up with PMD in 24 hours. Dylan Walton M.D. I have been assigned to dictate discharge summary on this account and I was not involved in the patient's management. Sheyla Wilkins N.P. DR: Chacho JOB#: [id number] CC: FAYE
--- NOTE | 2017-02-14 02:15 | Cardiology Report ---
APPROVED REPORT EKG Measurement Heart [id number] HI [id number] Normal sinus rhythm Possible Left atrial enlargement Left ventricular hypertrophy T wave abnormality, consider lateral ischemia Prolonged QT Abnormal ECG
== END 2017-02-11 15:15 | disposition home or self-care (01) | DRG 194 ==
LOC: EDBD 07:17 → EMR 07:40 → EDBEDREQ 09:20 → EDBEDREQSVC 09:20 → 2W 09:20 → EDBEDREQ 10:20 → 2W 12:46
PROC: 5A09357 Assistance with Respiratory Ventilation, Less than 24 Consecutive Hours, Continuous Positive Airway Pressure (ICD-10-PCS; principal; 2017-02-10)
DX: I11.0 Hypertensive heart disease with heart failure (principal); J44.1 Chronic obstructive pulmonary disease with (acute) exacerbation; I50.23 Acute on chronic systolic (congestive) heart failure; F14.10 Cocaine abuse, uncomplicated; I34.0 Nonrheumatic mitral (valve) insufficiency; I48.0 Paroxysmal atrial fibrillation; R06.89 Other abnormalities of breathing
CPT/HCPCS: 36415; 71010; 80053; 80300; 81003; 82550; 82553; 83605; 83880; 84484; 85025; 87040; 93005; 94640; 94664; 94760; J2310; J8499